=== PATIENT | male | born 1950 | race Caucasian/White ===

== ENCOUNTER 2023-12-07 19:33 | Inpatient (IN) | payer BC, MEDICARE, SELFPAY ==
[2023-12-07] VITALS (12 sets, daily range): BP systolic 98–139; BP diastolic 56–91; BMI 28.5; BMI 28.4
[2023-12-07 13:37] LABS: % Basophils 0.2 % (0-2); % Eosinophils 0.1 % (0-6); % Immature Granulocytes 0.8 % (0-0.5); % Monocytes 9.8 % (1.7-9.3); % Neutrophils 74.1 % (42.2-75.2); Absolute Immature Granulocytes 0.1 10^3/uL (0-0.05); Absolute Lymphocytes 1.4 10^3/uL (1.2-3.4); Absolute Monocytes 0.9 10^3/uL (0.1-0.6); Absolute Neutrophils 6.8 10^3/uL (1.4-6.5); Hematocrit 39.9 % (39.0-52.0); Hemoglobin 13.3 g/dL (13.0-18.0); Mean Corp Hgb Conc. 33.3 g/dL (33.0-37.0); Mean Corpuscular Hgb 29.6 pg (27.0-31.0); Mean Corpuscular Volume 88.9 fL (80.0-94.0); Nucleated Red Blood Cells % 0 % (-); Platelet Count 328 10^3/uL (130-400); Red Blood Cell Count 4.49 10^6/uL (4.70-6.10); Red Cell Dist. Width 13.4 % (11.5-14.5); White Blood Cell Count 9.2 10^3/uL (4.8-10.8)
[2023-12-07 13:54] LABS: ALT (SGPT) 23 U/L (0-50); AST (SGOT) 26 U/L (17-59); Albumin 4.1 g/dl (3.5-5.0); Alkaline Phosphatase 61 U/L (38-126); Blood Urea Nitrogen 28 mg/dl (9-20); Calcium 9.9 mg/dl (8.4-10.2); Carbon Dioxide 26 mmol/L (22-30); Chloride 103 mmol/L (98-107); Glucose 93 mg/dl (70-99); Magnesium 2.1 mg/dl (1.6-2.3); Potassium 5.1 mmol/L (3.5-5.1); Sodium 137 mmol/L (135-145); Total Bilirubin 0.5 mg/dl (0.2-1.3); Total Protein 6.3 g/dl (6.3-8.2); eGFR > 60.00
[2023-12-07 14:02] LABS: Troponin I < 0.012 ng/ml
[2023-12-07] MEDS: ASPIRIN 325 MG PO (14:02)
[2023-12-07 14:21] LABS: TSH 0.85 uIU/ml (0.47-4.68)
[2023-12-07] MEDS: SOLU-CORTEF 200 MG IV (15:19)
[2023-12-07] MEDS: BENADRYL 25 MG IV (15:19)
--- NOTE | 2023-12-07 17:38 | ED.GENMED ---
History of Present Illness
General
Chief Complaint: Chest Pain
Source: patient and spouse
Exam Limitations: none
Time Seen by Provider: 12/07/23 12:59
Nursing documentation reviewed up to this point in time: agreed with
Travel History
Have you had any contact with someone who has COVID-19?: No
Do you have any symptoms of coronavirus? Fever > 100 degrees, chills, cough, shortness of breath, sore throat, loss of taste or smell, muscle aches, or headache?: No
History of Present Illness
History of Present Illness:
73-year-old male past medical history of COPD, previous DVT remotely not currently on anticoagulation, hypertension presenting to the emergency department today with concerns of intermittent chest pain over the past 4 days made worse with exertion
some rotation down his left arm associated lightheadedness some nausea.
Past History
Past History
ED Past Medical History: COPD, Other (Autoimmune demyelinating disease) and Other (hx of blood clots); Negative HTN
Social History
Tobacco: Smoker
Alcohol: Occasional
Drug: None
Personal:
Living: with family
Employment: Disabled
Review of Systems
Review of Systems
Allergies reviewed?: Yes
All Other Systems: ROS reviewed and negative except as documented in HPI and ROS
Phy Exam
Physical Exam
Physical Exam:
GENERAL: Alert , in no apparent distress
EYE: pupils equal and reactive
NECK: Supple, no significant adenopathy.
ENT: o/p clr, mmm.
CARDIAC: Irregularly irregular
LUNGS: Clear breath sounds bilaterally, no acute respiratory distress, no wheezes/rales/rhonchi
ABDOMEN: Soft, without focal tenderness, no r/g, no cvat
NEUROLOGICAL: Alert and oriented, no focal neuro deficits
SKIN: Warm and dry, skin intact.
MUSCULOSKELETAL: No edema, well perfused.
PSYCH: Normal and appropriate interaction.
Scores
Heart Score for Chest Pain Patients
STEMI patient?: Not applicable
Course
Orders/Labs/Results
Orders:
Orders
12/07/23 12:48
Electrocardiogram (*1) Urgent
Reason for Study: Chest Pain
EKG- Treatment ONCE
12/07/23 13:11
CT Chest Pe Study Urgent
Comment:
Reason For Exam: CP. tachy, hx of DVT
Cardiac Monitoring- Treatment ONCE
Aspirin 325 mg PO NOW STA
12/07/23 13:29
Complete Blood Count/With Diff Urgent
Comprehensive Metabolic Panel Urgent
Magnesium Urgent
TSH Urgent
Troponin I Urgent
12/07/23 14:46
Hydrocortisone Sod Succinate [Solu-Cortef] 200 mg IV NOW STA
12/07/23 14:53
Diphenhydramine [Benadryl] 25 mg IV NOW STA
12/07/23 17:33
PT/INR [Prothrombin Time] Urgent
PTT Urgent
12/07/23 17:35
0.9% Sodium Chloride 250 ml [Nss] 250 ml IV BOLUS
Abnormal Lab Results
12/07/23
13:29
RBC 4.49 L 10^6/uL
(4.70-6.10)
Abs Immat Gran (auto) 0.1 H 10^3/uL
(0-0.05)
Absolute Neuts (auto) 6.8 H 10^3/uL
(1.4-6.5)
Absolute Monos (auto) 0.9 H 10^3/uL
(0.1-0.6)
Immature Gran % 0.8 H %
(0-0.5)
Lymphocytes % 15.0 L %
(20.5-51.1)
Monocytes % 9.8 H %
(1.7-9.3)
BUN 28 H mg/dl
(9-20)
12/07/23 13:29
12/07/23 13:29
Vital Signs
Initial and Last Documented VS:
Initial Vital Signs
Temp Pulse Resp BP Pulse Ox
98.4 F 64 16 133/80 98
12/07/23 12:53 12/07/23 12:53 12/07/23 12:53 12/07/23 12:53 12/07/23 12:53
Last Documented Vital Signs
Temp Pulse Resp BP Pulse Ox
98.4 F 101 17 122/75 96
12/07/23 12:53 12/07/23 13:45 12/07/23 13:45 12/07/23 13:25 12/07/23 13:45
MDM/Problems Addressed
MDM/Problems Addressed:
73-year-old male presenting to the emergency department today with concerns of chest pain lightheadedness over the past few days. Upon arrival here patient was found to have atrial fibrillation heart rate ranging between 90 and 110. Patient seems
to feel better at rest but has increased symptoms with exertion. No history of A-fib. Not currently anticoagulated. Does of a history of DVT concerning the CT PE was performed that did not show any pulmonary embolism or additional emergent
abnormalities labs otherwise unremarkable. Patient stayed in atrial fibrillation throughout ER stay. Patient started on heparin will be admitted for further assessment.
*Critical Care Note
Total Time (30-74mins, 75-104mins- exclusive of procedures): Not Applicable
ED Attending Note
-
Portions of this chart may have been created with voice recognition software.� Occasional wrong word or��sound alike� substitutions may have occurred due to the inherent limitations of voice recognition software.
Discharge Plan
Departure
Patient Disposition: Admit
Date of Disposition: 12/07/23
Time of Disposition: 17:45
Admit to: Telemetry
Admit to doctor: Giancarlo
Presentation/result/management discussed w/ accepting MD/DO: Hospitalist
Patient with high blood pressure during this ER visit?: No
Condition: Good
Covid-19: Not Applicable
Discharge Problem:
Atrial fibrillation
Prescriptions:
No Action
atorvastatin 10 MG tablet
10 mg PO QPM
mycophenolate mofetil 250 MG capsule
500 mg PO BID
omeprazole 40 MG capsule,delayed release(DR/EC)
40 mg PO DAILY
gabapentin 300 MG capsule
300 mg PO QID
fenofibrate 160 MG tablet
80 mg PO DAILY
albuterol sulfate 2.5 MG/3 ML solution for nebulization
2.5 mg inhalation QID Qty: 1 0RF
fluticasone propionate 1 SPRAY spray,suspension
2 spray intranasal DAILYPRN PRN (Reason: nasal congestion)
guaifenesin [Mucus Relief ER] 600 MG tablet extended release 12hr
600 mg PO Q12 0RF
amlodipine 5 mg Tablet
5 mg PO DAILY
tamsulosin 0.4 mg Capsule
0.4 mg PO DAILY
loratadine [Claritin] 10 mg Tablet
10 mg PO DAILY
Stiolto Respimat 2.5-2.5 mcg/actuation Mist
2 puff INHALATION DAILY
Referrals:
Ailyn Fabian CRNP [Family Provider] -
Interventions
Interventions:
*ED COVID-19 Vaccine History Last Done: 12/07/23 12:52
Discharge Date and Time
Print Language: TRISTANIAN
[2023-12-07] MEDS: NSS 250 IV (17:50)
[2023-12-07 18:19] LABS: INR 1.13; PT 14.4 Sec (11.4-14.6)
--- NOTE | 2023-12-07 19:06 | HPS.HSE ---
Family Physician
-
Family Physician: Ailyn Fabian
Chief Complaint
-
Chest pain and palpitations
History of Present Illness
This is a 73-year-old male who has past medical history that is significant for COPD not on home O2, CIDP, GERD and osteoarthritis who presents to the emergency department with complaint of palpitations chest pains and dizziness.
Patient reports onset of symptoms about 3 days ago. He reports feeling occasionally dizzy or lightheaded. He reports intermittent fleeting chest pain lasting minutes and then resolving spontaneously. Occasionally associated with exertion. He
denies any pleuritic chest pain. He denies any cough or wheezing or shortness of breath at rest. Patient denies fevers or chills. He reports feeling occasionally lightheaded with exertion. He denies any prior history of atrial fibrillation. He
does report a prior history of DVT about 25 years ago for which he was anticoagulated and completed the course of treatment. Patient reports occasional puffiness to his bilateral ankles which usually resolves with leg elevation. He denies
orthopnea or PND. He denies any recent weight gain.
On arrival to the emergency department the patient was afebrile blood pressure was 108/75 with a heart rate of 10 1-1 30 and oxygen saturation of 96% on room air. ECG shows atrial fibrillation with a rapid ventricular response at a rate of 110.
Patient had a CT PE study which was negative for PE or any acute infiltrates but did showed mild emphysema. Initial troponin was negative. TSH was within normal limits. CBC was unremarkable. Chemistries were also unremarkable.
Medical History
Past Medical History
Past Medical History: Reports COPD and GERD
Additional Past Medical History:
CIDP
Past Surgical History: Reports None
Social History
Tobacco: Former Smoker
Alcohol: None
Drug: None
Personal: Single
Living: Alone
Employment: Retired
Family History
Family History: Not pertinent
Allergies / Home Medications
Allergies reflects when Allergies were last updated in [facility].
Home Medications with original date entered in [facility]
Allergy/Medication List:
Allergies
Allergy/AdvReac Type Severity Reaction Status Date / Time
codeine Allergy Severe Anaphylaxis Verified 12/07/23 13:13
cephalexin monohydrate Allergy 'Throat Verified 12/07/23 12:53
[From Keflex] closes'
diphenhydramine HCl Allergy Loss of Verified 12/07/23 12:53
[From Benadryl] control of
extremities
iodine Allergy 'throat Verified 12/07/23 12:53
closes'
Penicillins Allergy Hives Verified 12/07/23 12:53
immune globulin Allergy Anaphylaxis Uncoded 12/07/23 12:53
monohydrate Allergy Unknown Uncoded 12/07/23 12:53
Home Medications
atorvastatin 10 mg tablet 10 mg PO DAILY 08/01/13
gabapentin 300 mg capsule 300 mg PO QID 08/01/13
omeprazole 40 mg capsule,delayed release 40 mg PO QPM 08/01/13
fenofibrate 160 mg tablet 80 mg PO DAILY 08/11/13
fluticasone propionate 50 mcg/actuation nasal spray,suspension 2 spray intranasal DAILYPRN PRN nasal congestion 05/17/16
albuterol sulfate 90 mcg/actuation aerosol inhaler (ProAir HFA) 2 inh inhalation R DAILY 12/07/23
amlodipine 5 mg tablet 5 mg PO DAILY 12/07/23
aspirin 81 mg tablet,delayed release 81 mg PO DAILY 12/07/23
cholecalciferol (vitamin D3) 25 mcg (1,000 unit) tablet (Vitamin D3) 25 mcg PO BID 12/07/23
ipratropium 0.5 mg-albuterol 3 mg (2.5 mg base)/3 mL nebulization soln 3 ml inhalation R QIDPRN PRN SOB 12/07/23
loratadine 10 mg tablet (Claritin) 10 mg PO DAILY 12/07/23
mycophenolate mofetil 500 mg tablet 500 mg PO BID 12/07/23
tamsulosin 0.4 mg capsule 0.4 mg PO DAILY 12/07/23
tiotropium 2.5 mcg-olodaterol 2.5 mcg/actuation mist for inhalation (Stiolto Respimat) 2 puff inhalation R DAILY 12/07/23
Review of Systems
-
History Source: Patient
Constitutional: Reports No Symptoms
EENT: Reports No Symptoms
Respiratory: Reports No Symptoms
Cardiac: Reports Palpitations
Abdomen/GI: Reports No Symptoms
: Reports No Symptoms
Musculoskeletal: Reports No Symptoms
Skin: Reports No Symptoms
Neurological: Reports No Symptoms
Endocrine: Reports No Symptoms
Hematologic/Lymphatic: Reports No Symptoms
Psych: Reports No Symptoms
Physical Exam
Vital Signs
Vital Signs
Temp Pulse Resp BP Pulse Ox
98.4 F 101 17 122/75 96
12/07/23 12:53 12/07/23 13:45 12/07/23 13:45 12/07/23 13:25 12/07/23 13:45
Physical Exam
General: Well Developed, Well Nourished, No Apparent Distress, Comfortable and Conversant
HEENT: NormoCephalic, Anicteric, Moist mucous membranes and Atraumatic
Respiratory: Clear
Cardiac: S1/S2 and Irregular Rhythm
Breast: Deferred by me
GI: Soft, Non Tender and Distended
Rectal: Deferred by Provider
Genito-urinary: Deferred by me
Musculoskeletal: No Clubbing, No Cyanosis and No Edema
Neuro: AO x 3
Hematologic/Lymphatic: No Lymphadenopathy
Psych: Calm
Laboratory Results
-
12/07/23 13:29
12/07/23 13:29
Laboratory Results
PT 14.4 Sec (11.4-14.6) 12/07/23 17:49
INR 1.13 12/07/23 17:49
APTT 25.0 Sec (23.4-35.0) 12/07/23 17:49
Total Bilirubin 0.5 mg/dl (0.2-1.3) 12/07/23 13:29
AST 26 U/L (17-59) 12/07/23 13:29
ALT 23 U/L (0-50) 12/07/23 13:29
Alkaline Phosphatase 61 U/L (38-126) 12/07/23 13:29
Troponin I < 0.012 ng/ml 12/07/23 13:29
Data Reviewed
-
CT Scan: Report Reviewed by me
Medical Tests (Nuc Med, Echo, EKG etc): Image Personally Visualized and interpreted
Lab Data: Labs Reviewed by me
Old Records: Reviewed
Impression/Plan
-
IMPRESSION:
PLAN:
1. AFIB RVR - New Onset atrial fibrillation with rapid ventricular response. Hemodynamically table. Palpitations. No signs of acute CHF.
- admit to telemetry/IVU
- rate uncontrolled, no CHF, will start on diltiazem gtt
- [id number] = 2. AC started with heparin tonight, will convert to eliquis in am
2. COPD - No signs of acute exacerbation
- continue home Stiolto Respimat with prn nebs
3. Chest pain - possible rate related. Currently no chest pain, negative troponin and no ischemia on ECG.
- rate control as above
- aspirin 81 daily
- ac for afib
- no PE on CT scan.
4. BPH
- continue tamsulosin
DVT PPX - on AC
Full Code
[2023-12-07] MEDS: CARDIZEM 15 MG IV (19:44)
[2023-12-07] MEDS: VITAMIN D3 (cholecalciferol) 25 MCG PO (19:45)
[2023-12-07] MEDS: CELLCEPT 500 MG PO (19:45)
[2023-12-07] MEDS: HEPARIN 25000 UNITS/250 ML IV (19:46)
[2023-12-07] MEDS: CARDIZEM 125 IV (21:43)
[2023-12-07] MEDS: NEURONTIN 300 MG PO (21:44)
[2023-12-08] VITALS (8 sets, daily range): BP systolic 116–135; BP diastolic 70–88
--- NOTE | 2023-12-08 01:05 | PTCARENOTE ---
Late note:Received from the ED at 2114. Heparin infusing at 1000units/hr. Cardizem infusing at 5mg/hr. Remains in A-fib in the 80's. Sleeping at present.
[2023-12-08 02:23] LABS: Blood Urea Nitrogen 30 mg/dl (9-20); Calcium 9.7 mg/dl (8.4-10.2); Carbon Dioxide 26 mmol/L (22-30); Chloride 102 mmol/L (98-107); Estimated Creatinine Clearance 50 ml/min; Glucose 135 mg/dl (70-99); Magnesium 2.3 mg/dl (1.6-2.3); Potassium 4.9 mmol/L (3.5-5.1); Sodium 137 mmol/L (135-145); eGFR 58.37
[2023-12-08 02:25] LABS: APTT 34.2 Sec (23.4-35.0)
--- NOTE | 2023-12-08 07:05 | PTCARENOTE ---
Patient rang this morning stating that he had chest pressure and some SOB that he had for about an hour, EKG done showing a-fib, 2 L 02 applied, as I was talking to him his pressure was easing. Asked him to notify staff if pressure/pain returns.
[2023-12-08] MEDS: SPIRIVA RESPIMAT 2.5 MCG 2 PUFF INH (08:07)
[2023-12-08] MEDS: STRIVERDI RESPIMAT 2 PUFF INH (08:07)
--- NOTE | 2023-12-08 08:18 | W.PN.HOSP.TC ---
Today's Communication/Plan
-
see bold
Assessment / Plan
Assessment / Plan
Gen: NAD, AAOx3.
Eyes: EOMI, PERRLA, no scleral icterus.
Neck: supple.
CV: RRR, +S1/S2, no m/r/g.
Resp: CTAB, no rales, wheezes, or rhonchi.
Abd: +BS, soft, NT, ND
Skin: No rashes.
Neuro: CN 2-12 intact, non-focal.
Psych: Normal mood and affect.
Afib with RVR:
-cont cardizem gtt. Currently rate controlled. Will likely transition to PO rate control today.
-convert to Eliquis (stop heparin gtt)
-CP likely rate related. Trop NEG, ECG without acute ischemic changes.
Other problems:
COPD: not in acute exac. Cont Spiriva/Striverdi.
BPH: cont Flomax
CIDP: cont Cellcept/neurontin
GERD: cont PPI
OA
FULL/Eliquis
Anticipated Discharge: Within 24 hours
Subjective/Interval History
-
Date of Service: December 08, 2023
Objective Data
-
Labs:
Laboratory Results
12/08/23 12/08/23
01:48 08:30
APTT 34.2 Pending
Sodium 137
Potassium 4.9
Chloride 102
Carbon Dioxide 26
BUN 30 H
Creatinine 1.3
Glucose 135 H
Calcium 9.7
Vital Signs:
Vital Signs
Temp Pulse Resp BP Pulse Ox
97.7 F 85 16 130/82 98
12/08/23 07:50 12/08/23 08:16 12/08/23 08:16 12/08/23 07:52 12/08/23 07:52
I&O
12/07/23 12/08/23 12/09/23
06:59 06:59 06:59
Output Total 550 / 550
Balance -550 / -550
[2023-12-08] MEDS: ASPIR LOW (ENTERIC COATED) 81 MG PO (08:42)
[2023-12-08] MEDS: FLOMAX 0.400000000000000022 MG PO (08:44)
[2023-12-08] MEDS: ELIQUIS 5 MG PO ×2 (08:45→20:56)
[2023-12-08] MEDS: TRICOR 48 MG PO (08:45)
[2023-12-08] MEDS: LIPITOR 10 MG PO (08:45)
[2023-12-08] MEDS: NEURONTIN 300 MG PO ×4 (08:45→22:26)
[2023-12-08] MEDS: VITAMIN D3 (cholecalciferol) 25 MCG PO ×2 (08:45→20:56)
[2023-12-08] MEDS: CELLCEPT 500 MG PO ×2 (08:47→20:56)
--- NOTE | 2023-12-08 11:02 | PTCARENOTE ---
Received patient this morning resting in bed, IV heparin infusing and IV cardizem. Patient remains in AF at a controlled rate. IV heparin discontinued as ordered and patient given dose of PO eliquis. Offers no complaints at this time, assisted to
the bathroom, resting in bed now with call landry in reach.
[2023-12-08] MEDS: CLARITIN 10 MG PO (13:06)
[2023-12-08] MEDS: PROTONIX 40 MG PO (16:53)
[2023-12-08] MEDS: CARDIZEM 125 IV (18:53)
[2023-12-09] VITALS (20 sets, daily range): BP systolic 99–157; BP diastolic 63–98
--- NOTE | 2023-12-09 03:58 | PTCARENOTE ---
New peripheral line placed after LAC site leaked. Cardizem gtt currently at 5 mg/hr. Pt remains in aflutter with BBB. 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
[2023-12-09] MEDS: STRIVERDI RESPIMAT 2 PUFF INH (07:45)
[2023-12-09] MEDS: SPIRIVA RESPIMAT 2.5 MCG 2 PUFF INH (07:45)
[2023-12-09] MEDS: ASPIR LOW (ENTERIC COATED) 81 MG PO (08:47)
[2023-12-09] MEDS: NEURONTIN 300 MG PO ×4 (08:47→22:21)
[2023-12-09] MEDS: ELIQUIS 5 MG PO (08:47)
[2023-12-09] MEDS: CELLCEPT 500 MG PO ×2 (08:48→20:10)
--- NOTE | 2023-12-09 08:49 | PTCARENOTE ---
Patient sitting oob in the chair at change of shift with cardizem infusing at 5mg/hr, anxious to have echo done and hoping to go home. At 0820 patient called nurse with complaints of left anterior/lateral chest pressure. Rated 8/10 stating it felt
like someone was sitting on his chest. Assisted back to bed, EKG done, patient diaphoretic, flushed and grimacing with chest pain. Dr. Stratton notified, SLIP [facility] called. Given NTG sl for chest pain rated 8/10, 157/86-96% on 3L NC. See [facility] report for further
info. Cardiology consult placed, labs drawn and PCXR done. Patient rates his pain after NTG 07/10, monitoring VS, call landry in reach.
--- NOTE | 2023-12-09 08:53 | RR ---
A Rapid Response was called on this patient, please see Rapid Response form.
[2023-12-09] MEDS: TOPROL XL 25 MG PO (08:58)
--- NOTE | 2023-12-09 09:27 | W.PN.HOSP.TC ---
Today's Communication/Plan
-
see bold
Assessment / Plan
Assessment / Plan
Gen: NAD, AAOx3.
Eyes: EOMI, PERRLA, no scleral icterus.
Neck: supple.
CV: RRR, +S1/S2, no m/r/g.
Resp: CTAB, no rales, wheezes, or rhonchi.
Abd: +BS, soft, NT, ND
Skin: No rashes.
Neuro: CN 2-12 intact, non-focal.
Psych: Normal mood and affect.
Afib with RVR:
-has been on cardizem gtt (currently at 5mg/hr)
-start Toprol XL 25mg daily
-cont Eliquis
-with recurrent chest pain we will trend troponins and check an echo. Chest pain did improve with nitroglycerin.
-Current ECGs without acute ischemic changes
-Cardiology consulted. Case discussed with cardiology.
Other problems:
COPD: not in acute exac. Cont Spiriva/Striverdi.
BPH: cont Flomax
CIDP: cont Cellcept/neurontin
GERD: cont PPI
OA
FULL/Eliquis
Total time spent on today's encounter was 50 minutes which included time spent in counseling the patient/family regarding diagnosis and treatment plan as listed above, goals of care, and symptom management. Case was discussed with nursing staff,
specialists, and care coordinators/case management. All labs and imaging personally reviewed by me. Remainder the time spent in detailed review of previous records, lab data, imaging, and other medical provider documentation.
Anticipated Discharge: 24 - 48 hours
Subjective/Interval History
-
Date of Service: December 09, 2023
Patient had a rapid response for pressure-like chest pain. Chest pain is improved with nitroglycerin.
Objective Data
-
Labs:
Laboratory Results
12/09/23
06:00
WBC Cancelled
Hgb Cancelled
Hct Cancelled
Plt Count Cancelled
Vital Signs:
Vital Signs
Temp Pulse Resp BP Pulse Ox
97.3 F 86 14 120/78 97
12/09/23 06:51 12/09/23 08:58 12/09/23 07:50 12/09/23 08:58 12/09/23 06:51
I&O
12/08/23 12/09/23 12/10/23
06:59 06:59 06:59
Intake Total 1560 / 1560
Output Total 550 / 550
Balance -550 / -550 1560 / 1560
--- NOTE | 2023-12-09 09:36 | CON.CAR ---
Addendum entered and electronically signed by Milagros Méndez DO 12/09/23 16:36:
I saw and examined the patient.
The Charter Boat Operator's note was reviewed and I agree with the note.
Comment: Patient seen and examined with cardiac PA. Isaiah presented to [facility] Saturday with chest pain and cardiology is now consulted for new Afib and after a rapid response for recurrent chest pain this morning. Patient says that starting 2-3 weeks
ago he noticed LLOYD worse than usual, he attributed this to his known COPD that tends to get worse at times depending on allergies and humidity. He also noticed increased nocturia starting around that time. Then at the end of last week he was having
episodes of chest pain that started with activity and would eventually improve with rest. Chest pain was sharp and left sided and radiated down the left arm. No resting chest pain. In [facility] he was found to be in Afib with RVR which was a new
diagnosis for him. He has a h/o DVT so a CT chest was checked and it was negative for PE. Patient was started on Cardizem gtt for rate control and Heparin gtt as well. He was transitioned to Eliquis 5 mg BID starting Saturday morning. He then had an
episode of resting chest pain this morning that he describes as being similar to his admission symptoms. Patient was still on Cardizem gtt at 5 mg/hr during chest pain episode and Afib was rate controlled in the 70s. ECG at that time was negative
for ischemic changes and his chest pain was relieved with NTG SL x1 and has not recurred.
GEN: NAD. AAOx3
HEENT: mmm
LUNGS: Wearing oxygen at 2 L NC. CTA B/L without wheeze
CV: Reg, S1/S2, no murmur
ABD: soft, BS+, NT, ND
EXT: No edema
Plan:
-Recurrent chest pain with escalating chest pain over the last week concerning for unstable angina
-Multiple risk factors for coronary artery disease with 2D echocardiogram noting mild LV dysfunction, EF 45-50%
-Discussed further ischemic evaluation and he is agreeable to proceed with a left heart catheterization which we will plan for 12/11/2023 following washout of Eliquis
-Hold Eliquis and start IV heparin without bolus. Continue aspirin 81 mg daily
-Will need IV dye allergy prep prior to catheterization
-Check lipid profile; continue atorvastatin
-New diagnosis of rapid atrial fibrillation
-He remains in atrial fibrillation now with rates controlled
-Will discontinue IV Cardizem drip and continue metoprolol succinate
-Hold newly started Eliquis for cardiac catheterization and start IV heparin. Following cardiac procedures will resume Eliquis 5 mg twice daily
-Cont outpatient dose of aspirin 81 mg daily for now.
-TSH normal at 0.85
-Pending cardiac catheterization findings can discuss rhythm control strategy options
COPD with prior tobacco dependence
-No active issues
-Follows with pulmonary, Dr. Lomeli as an outpatient
-Will review outpatient pulmonary records for prior sleep apnea evaluation
Hyperglycemia with elevated hemoglobin A1c 6.1% consistent with prediabetic state
-Await cardiac catheterization findings
-Low-carb/low sugar cardiac healthy diet with aim towards normoglycemia
Hyperkalemia
-Repeat basic metabolic profile
-Potassium level was normal on admission and does not take KCl/ROD/ARB/spironolactone
History of prior DVT 2009 not on longstanding anticoagulation at time of admission
-CTA chest without pulmonary embolism or aortic dissection. Mild emphysematous changes.
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
Original Note:
Consultation
Consultation Request
Date/Time Consultation Requested: 12/09/23
Date/Time Consultation Performed: 12/09/23
Requesting Provider: Dr. Stratton
Performing Provider: Dr. Méndez
Reason for Consultation: Chest pain, newly diagnosed Afib of unclear duration
Medical History
-
History of Present Illness:
Patient came to [facility] Saturday with chest pain and cardiology is now consulted for new Afib and after a rapid response for recurrent chest pain this morning. Patient says that starting 2-3 weeks ago he noticed LLOYD worse than usual, he attributed this
to his known COPD that tends to get worse at times depending on allergies and humidity. He also noticed increased nocturia starting around that time. Then at the end of last week he was having episodes of chest pain that started with activity and
would eventually improve with rest. Chest pain was sharp and left sided and radiated down the left arm. No resting chest pain. In [facility] he was found to be in Afib with RVR which was a new diagnosis for him. He has a h/o DVT so a CT chest was checked
and it was negative for PE. Patient was started on Cardizem gtt for rate control and Heparin gtt as well. He was transitioned to Eliquis 5 mg BID starting Saturday morning. He then had an episode of resting chest pain this morning that he describes as
being similar to his admission symptoms. Patient was still on Cardizem gtt at 5 mg/hr during chest pain episode and Afib was rate controlled in the 70s. ECG at that time was negative for ischemic changes and his chest pain was relieved with NTG SL
x1 and has not recurred.
PMH:
COPD
CIDP on chronic CellCept therapy
h/o anaphylaxis with IVIG therapy 2003
CKD 3
HTN
Hyperlipidemia
h/o DVT treated with warfarin approx 2008
Anaphylactic dye allergy
h/o nonobstructive CAD by cath at [facility] approx 2014
Past Medical History
Past Medical History: Other (in HPI)
Past Surgical History: Cardiac (cath at [facility] approx 2014 was normal per patient)
Social History
Tobacco: Former Smoker
Alcohol: None
Drug: None
Personal:
Living: With Family
Family History
Family History: Other (FH unknown to patient except that his brother is healthy)
Allergies / Home Medications
Allergy/AdvReac Type Severity Reaction Status Date / Time
codeine Allergy Severe Anaphylaxis Verified 12/07/23 13:13
cephalexin monohydrate Allergy 'Throat Verified 12/07/23 12:53
[From Keflex] closes'
diphenhydramine HCl Allergy Loss of Verified 12/07/23 12:53
[From Benadryl] control of
extremities
iodine Allergy 'throat Verified 12/07/23 12:53
closes'
Penicillins Allergy Hives Verified 12/07/23 12:53
immune globulin Allergy Anaphylaxis Uncoded 12/07/23 12:53
monohydrate Allergy Unknown Uncoded 12/07/23 12:53
�Medication �Instructions �Recorded �Confirmed �Type
atorvastatin 10 mg tablet 10 mg PO DAILY High Cholesterol 08/01/13 12/07/23 History
gabapentin 300 mg capsule 300 mg PO QID 08/01/13 12/07/23 History
omeprazole 40 mg capsule,delayed 40 mg PO QPM Gastrointestinal Issue 08/01/13 12/07/23 History
release
fenofibrate 160 mg tablet 80 mg PO DAILY High Cholesterol 08/11/13 12/07/23 History
fluticasone propionate 50 2 spray intranasal DAILYPRN PRN 05/17/16 12/07/23 History
mcg/actuation nasal nasal congestion
spray,suspension
albuterol sulfate 90 mcg/actuation 2 inh inhalation R DAILY 12/07/23 12/07/23 History
aerosol inhaler (ProAir HFA) Lung/Breathing Issues
amlodipine 5 mg tablet 5 mg PO DAILY Blood Pressure 12/07/23 12/07/23 History
aspirin 81 mg tablet,delayed 81 mg PO DAILY Blood Clot 12/07/23 12/07/23 History
release Prevention/Tx
cholecalciferol (vitamin D3) 25 25 mcg PO BID Supplement 12/07/23 12/07/23 History
mcg (1,000 unit) tablet (Vitamin
D3)
ipratropium 0.5 mg-albuterol 3 mg 3 ml inhalation R QIDPRN PRN SOB 12/07/23 12/07/23 History
(2.5 mg base)/3 mL nebulization
soln
loratadine 10 mg tablet (Claritin) 10 mg PO DAILY Allergies 12/07/23 12/07/23 History
mycophenolate mofetil 500 mg tablet 500 mg PO BID 12/07/23 12/07/23 History
tamsulosin 0.4 mg capsule 0.4 mg PO DAILY Urinary Issue 12/07/23 12/07/23 History
tiotropium 2.5 mcg-olodaterol 2.5 2 puff inhalation R DAILY 12/07/23 12/07/23 History
mcg/actuation mist for inhalation Lung/Breathing Issues
(Stiolto Respimat)
Review of Systems
-
History Source: Patient
All other systems: Negative unless noted
Physical Exam
Vital Signs
Temp Pulse Resp BP Pulse Ox
97.3 F 86 14 120/78 97
12/09/23 06:51 12/09/23 08:58 12/09/23 07:50 12/09/23 08:58 12/09/23 06:51
GEN: NAD. AAOx3
HEENT: EOMI, MMM
LUNGS: Wearing oxygen at 2 L NC. CTA B/L without wheeze
CV: Reg, S1/S2, no murmur
ABD: soft, BS+, NT, ND
EXT: No clubbing, cyanosis, lesions or edema B/L
NEURO: Gross non-focal
SKIN: Warm, dry and pink. No rash
Lab Results
12/09/23 06:00
12/08/23 01:48
Troponin I < 0.012 ng/ml 12/07/23 13:29
Impression / Plan
-
PCP: Ailyn Fabian EXECUTIVE COMMUNICATIONS MANAGER
Cardiology: Dr. Teran, last seen 04/17/22
Impression:
Chest pain
Newly diagnosed Afib with RVR on admission 12/07/23
COPD
CIDP on chronic CellCept therapy
h/o anaphylaxis with IVIG therapy 2003
CKD 3
HTN
Hyperlipidemia
h/o DVT treated with warfarin approx 2008
Anaphylactic dye allergy
Hyperglycemia
h/o nonobstructive CAD by cath at [facility] approx 2014
Hyperkalemia
Echo 12/09/23: Study pending
Plan:
-Patient came to [facility] Saturday with chest pain and cardiology is now consulted for new Afib and after a rapid response for recurrent chest pain this morning. Patient says that starting 2-3 weeks ago he noticed LLOYD worse than usual, he attributed
this to his known COPD that tends to get worse at times depending on allergies and humidity. He also noticed increased nocturia starting around that time. Then at the end of last week he was having episodes of chest pain that started with activity
and would eventually improve with rest. Chest pain was sharp and left sided and radiated down the left arm. No resting chest pain. In [facility] he was found to be in Afib with RVR which was a new diagnosis for him. He has a h/o DVT so a CT chest was
checked and it was negative for PE. Patient was started on Cardizem gtt for rate control and Heparin gtt as well. He was transitioned to Eliquis 5 mg BID starting Saturday morning. He then had an episode of resting chest pain this morning that he
describes as being similar to his admission symptoms. Patient was still on Cardizem gtt at 5 mg/hr during chest pain episode and Afib was rate controlled in the 70s. ECG at that time was negative for ischemic changes and his chest pain was relieved
with NTG SL x1 and has not recurred.
-Patient with rapid response this AM for chest pain that was relieved with NTG SL x1 and has not recurred. Initial Troponin in the ER Saturday was undetectable and Troponin this morning is also undetectable. Will check another Troponin this
afternoon.
-ECG from day of admission and this AM reviewed by me and show Afib without acute ischemic changes.
-Check echo
-Patient with risk factors for CAD including age, CKD, former smoker, HTN and hyperlipidemia. Talked with patient about possible cardiac cath and he mentions he had a cath at [facility] about 10 years ago that was reportedly normal. Patient would be open
to cath this admission pending echo and Troponins.
-Check CVE. Patient takes atorvastatin 10 mg daily as an outpatient.
-Cont outpatient dose of aspirin 81 mg daily for now.
-Afib is a new diagnosis. HRs controlled with Cardizem gtt since admission and currently running at 5 mg/hr. Will transition from Cardizem gtt to Cardizem CD pending echo. Patient with h/o moderate COPD/emphysema.
-Heparin gtt was transitioned to Eliquis 5 mg BID (age 73, Cre 1.3 and wt 94.6 kg) on 12/08/23 AM. Will hold Eliquis starting 12/09/23 PM and transition back to Heparin gtt for possible cath. Eventually transition back to Eliquis.
-Talked with patient about possible eventual rhythm control strategy which includes MART/CV this admission vs outpatient CV after 4 weeks of OAC.
-TSH normal at 0.85
-Hyperglycemia since admission. Check HgbA1c
-Recheck BMP in AM. Potassium level was normal on admission and does not take KCl/ROD/ARB/spironolactone
[2023-12-09 09:51] LABS: % Basophils 0.3 % (0-2); % Eosinophils 0.1 % (0-6); % Immature Granulocytes 0.9 % (0-0.5); % Lymphocytes 12.2 % (20.5-51.1); % Neutrophils 81.5 % (42.2-75.2); Absolute Immature Granulocytes 0.1 10^3/uL (0-0.05); Absolute Lymphocytes 1.3 10^3/uL (1.2-3.4); Absolute Monocytes 0.5 10^3/uL (0.1-0.6); Absolute Neutrophils 8.4 10^3/uL (1.4-6.5); Hematocrit 43.6 % (39.0-52.0); Hemoglobin 13.9 g/dL (13.0-18.0); Mean Corp Hgb Conc. 31.9 g/dL (33.0-37.0); Mean Corpuscular Hgb 29.1 pg (27.0-31.0); Mean Corpuscular Volume 91.4 fL (80.0-94.0); Mean Platelet Volume 10.7 fL (7.4-10.4); Nucleated Red Blood Cells % 0 % (-); Platelet Count 303 10^3/uL (130-400); Red Blood Cell Count 4.77 10^6/uL (4.70-6.10); Red Cell Dist. Width 13.4 % (11.5-14.5); White Blood Cell Count 10.3 10^3/uL (4.8-10.8)
[2023-12-09 09:54] LABS: APTT 26.5 Sec (23.4-35.0); INR 1.23; PT 15.3 Sec (11.4-14.6)
[2023-12-09 10:07] LABS: Alkaline Phosphatase 59 U/L (38-126); Blood Urea Nitrogen 39 mg/dl (9-20); Calcium 9.4 mg/dl (8.4-10.2); Carbon Dioxide 25 mmol/L (22-30); Chloride 101 mmol/L (98-107); Estimated Creatinine Clearance 50 ml/min; Glucose 126 mg/dl (70-99); Potassium 5.7 mmol/L (3.5-5.1); Sodium 136 mmol/L (135-145); Total Protein 6.3 g/dl (6.3-8.2); eGFR 58.37
[2023-12-09 10:08] LABS: ALT (SGPT) 20 U/L (0-50); AST (SGOT) 26 U/L (17-59); Total Bilirubin 0.8 mg/dl (0.2-1.3)
[2023-12-09] MEDS: FLOMAX 0.400000000000000022 MG PO (10:25)
[2023-12-09] MEDS: LIPITOR 10 MG PO (10:25)
[2023-12-09] MEDS: VITAMIN D3 (cholecalciferol) 25 MCG PO ×2 (10:26→20:10)
[2023-12-09] MEDS: CLARITIN 10 MG PO (10:31)
[2023-12-09] MEDS: TRICOR 48 MG PO (10:31)
[2023-12-09 12:04] LABS: Glycohemoglobin (HgbA1c) 6.1 % (4.0-5.6)
--- NOTE | 2023-12-09 13:12 | PTCARENOTE ---
Patient sitting oob in the chair, remains in AF at a controlled rate, cardizem gtt off. No chest pain, call landry in reach and is aware to call if any reoccurrence of chest pain.
--- NOTE | 2023-12-09 13:39 | CM ---
CM following for DC planning needs.
CM met w/ patient at bedside to complete initial assessment. Spouse was on speaker telephone.
Pt. resides w/ spouse in a private, 2 story home w/ spouse. Pt. is functionally indep. at baseline w/ ADLs, mobility with use of SPC.
Pt. has Rx plan and uses [facility] in [place] for prescription needs.
Anticipated DC plan is for home without needs.
CM will cont. to follow.
--- NOTE | 2023-12-09 14:42 | W.PN.UPDATE ---
Update Note
Progress Note Update
Back in to see patient. No chest pain. Echo with EF 45%, global hypokinesis, normal aortic valve, trivial MR. Troponin undetectable. Patient called his while I was in the room and we reviewed all of these results and explained the decreased EF.
Reviewed Afib with RVR for unknown duration prior to admission and now CP x2 episodes. Made a plan to stop Eliquis starting tonight and to restart Heparin gtt. Patient agreeable to cath 12/11/23 and will need to be premedicated due to dye allergy. He
was premedicated with Benadryl and hydrocortisone prior to CT for PE in the ER on Saturday and did well with that. Also talked again about eventual role of rhythm control strategy in the form of inpatient vs outpatient CV. Next Troponin due now.
--- NOTE | 2023-12-09 15:04 | CM ---
Priced Eliquis thru patient's insurance, ; estimated cost of Eliquis is 389.70/mo. Pt. has a deductible of 4,900 to meet (not including medical). Once met, cost of Eliquis is estimated to be $97/mo.
Pt. would be eligible for free 30 d supply; also would be eligible for $10/mo co-pay card. Will place in patient's chart and notify pt. directly.
[2023-12-09] MEDS: HEPARIN 25000 UNITS/250 ML IV (16:47)
[2023-12-09 16:50] LABS: Troponin I < 0.012 ng/ml
[2023-12-09] MEDS: PROTONIX 40 MG PO (16:58)
[2023-12-09] MEDS: NITROSTAT (SUBLINGUAL) 0.400000000000000022 MG SL (20:13)
--- NOTE | 2023-12-09 20:38 | PTCARENOTE ---
Pt rec'd at change of shift in bed. When asked pt stated he has 3 out of 10 chest discomfort (wt on left side ,non radiating). Pt given sl ntg with relief of symptoms from 3 to 1 out of 10. B/p dropped from 135/78 to 99/63 after 1. Pt instructed to
not hesitate and call should cp reoccur. heparin infusing at 1000 unit/hr. afib rate controlled on telemetry. call landry within reach.
[2023-12-09 22:56] LABS: APTT 39.8 Sec (23.4-35.0)
[2023-12-09 23:09] LABS: Troponin I < 0.012 ng/ml
[2023-12-10] VITALS (17 sets, daily range): BP systolic 89–147; BP diastolic 61–87
--- NOTE | 2023-12-10 00:08 | PTCARENOTE ---
At HS pt awoken for VS and labs. Pt denied chest discomfort at that time.
[2023-12-10] MEDS: NITROSTAT (SUBLINGUAL) 0.400000000000000022 MG SL ×2 (06:25→20:22)
--- NOTE | 2023-12-10 06:43 | PTCARENOTE ---
Pt again with cp this morning ' strong 3 out of 10' looks in some distress b/p 147/87 before SL NTG down to 89/61 after 5 min. o2 at 2 lit n/c placed. pain waxing and waning left chest. afib on telemetry. [place] text sent to Dr Ellison awaiting reply.
--- NOTE | 2023-12-10 07:52 | W.PN.HOSP.TC ---
Addendum entered and electronically signed by Felix Stratton MD 12/10/23 08:19:
correction, cath tomorrow as per cardiology.
Original Note:
Today's Communication/Plan
-
see bold
Assessment / Plan
Assessment / Plan
Gen: NAD, AAOx3.
Eyes: EOMI, PERRLA, no scleral icterus.
Neck: supple.
CV: irreg/irreg, +S1/S2, no m/r/g.
Resp: CTAB, no rales, wheezes, or rhonchi.
Abd: +BS, soft, NT, ND
Skin: No rashes. No LE edema
Neuro: CN 2-12 intact, non-focal.
Psych: Normal mood and affect.
Echo: EF 45-50%. Normal left ventricular wall thickness. Normal RV size and systolic function. Mildly dilated left atrium with normal left atrial volume index. Trivial mitral regurgitation.
Trileaflet structurally and functionally normal aortic valve
Mild tricuspid regurgitation
Estimated pulmonary artery pressure of 25-30 mmHg. Assuming a right atrial
pressure of 3 mmHg.
Normal pericardium without effusion. No pleural effusion present.
Afib with RVR:
-has been on cardizem gtt (currently at 5mg/hr)
-cont Toprol XL 25mg daily
-currently on heparin gtt
-with recurrent chest pain (which improved with nitroglycerin) trops checked and were NEG. Echo above, no RWMA.
-ECG 12/09/23 without acute ischemic changes
-Cardiology following, discussed with cardiology
-for cath today
Other problems:
COPD: not in acute exac. Cont Spiriva/Striverdi.
BPH: cont Flomax
CIDP: cont Cellcept/neurontin
GERD: cont PPI
OA
FULL/heparin gtt
Total time spent on today's encounter was 51 minutes which included time spent in counseling the patient/family regarding diagnosis and treatment plan as listed above, goals of care, and symptom management. Case was discussed with nursing staff,
specialists, and care coordinators/case management. All labs and imaging personally reviewed by me. Remainder the time spent in detailed review of previous records, lab data, imaging, and other medical provider documentation.
Anticipated Discharge: 24 - 48 hours
Subjective/Interval History
-
Date of Service: December 10, 2023
Reports 07/10 pressure-like L-sided CP. Denies SOB.
Objective Data
-
Labs:
Laboratory Results
12/09/23 12/10/23
22:37 07:49
APTT 39.8 H Pending
Vital Signs:
Vital Signs
Temp Pulse Resp BP Pulse Ox
98.3 F 91 18 129/79 99
12/10/23 07:24 12/10/23 07:24 12/10/23 07:24 12/10/23 07:24 12/10/23 07:24
I&O
12/09/23 12/10/23 12/11/23
06:59 06:59 06:59
Intake Total 1560 / 1560 720 / 720
Output Total 600 / 600
Balance 1560 / 1560 120 / 120
[2023-12-10] MEDS: NEURONTIN 300 MG PO ×4 (07:53→22:22)
[2023-12-10] MEDS: VITAMIN D3 (cholecalciferol) 25 MCG PO ×2 (07:53→19:52)
[2023-12-10] MEDS: LIPITOR 10 MG PO (07:53)
[2023-12-10] MEDS: TOPROL XL 25 MG PO (07:53)
[2023-12-10] MEDS: TRICOR 48 MG PO (07:53)
[2023-12-10] MEDS: FLOMAX 0.400000000000000022 MG PO (07:53)
[2023-12-10] MEDS: ASPIR LOW (ENTERIC COATED) 81 MG PO (07:53)
[2023-12-10] MEDS: CELLCEPT 500 MG PO ×2 (07:54→19:52)
[2023-12-10] MEDS: CLARITIN 10 MG PO (07:56)
[2023-12-10] MEDS: STRIVERDI RESPIMAT 2 PUFF INH (08:11)
[2023-12-10] MEDS: SPIRIVA RESPIMAT 2.5 MCG 2 PUFF INH (08:11)
[2023-12-10 08:19] LABS: Troponin I < 0.012 ng/ml
[2023-12-10] MEDS: IMDUR (EXTENDED RELEASE) 30 MG PO (08:49)
--- NOTE | 2023-12-10 09:09 | PTCARENOTE ---
Assumed care of pt at 0645. AAOx3. Afib on desk monitor. HRs 70s-90s. Remains on 2L nc, SaO2 99%. VSS. Pt denies CP at this time. Heparin gtt increased to 1400 units/hr for PTT result 61.0, next PTT due at 1430. Imdur 30mg PO daily started. Plan
for cath tmrw. Assessment documented. Pt in bed, call landry in reach.
--- NOTE | 2023-12-10 11:14 | CM ---
CM following for DC planning needs.
Met w/ patient at bedside; spouse over speaker telephone.
Reviewed anticipated cost of Eliquis, patient's annual deductible and coupons. Pt. aware/ agreeable to cost.
Placed coupons in chart.
Anticipated DC plan is for home, no needs; patient and spouse agree.
CM to cont. to follow.
[2023-12-10] MEDS: HEPARIN 25000 UNITS/250 ML IV (12:20)
--- NOTE | 2023-12-10 12:36 | W.PN.CARDCBS ---
Addendum entered and electronically signed by Tree Jerry MD 12/10/23 13:22:
I saw and examined the patient.
The RELAY OPERATOR or PA's note was reviewed and I agree with the note.
Comment: General: Well developed, well nourished in NAD.
Neck: Supple, no JVD, HJR, carotids +2 B/L, no bruits bilaterally.
Heart: Non displaced PMI, RRR, no murmurs, No S3, S4, no rubs.
Lungs: Clear to auscultation bilaterally, no wheeze, rhonchi, rubs bilaterally,
normal expiratory phase.
Extremities: No clubbing, cyanosis or edema bilaterally.
Neuro: Grossly nonfocal, awake, alert and oriented x3.
He remains in sinus rhythm. He continues with chest pain but troponins have been negative. Will do cardiac catheterization on 12/10 to exclude CAD. Continue IV heparin for now and start Eliquis after catheterization. Discussed with patient in
detail.
Original Note:
Today's Communication / Plan
-
Cath in AM
Labs ordered
Impression / Plan
-
PCP: Ailyn Fabian RELAY OPERATOR
Cardiology: Dr. Teran, last seen 04/17/22
Impression:
Chest pain
Newly diagnosed Afib with RVR on admission 12/07/23
COPD
CIDP on chronic CellCept therapy
h/o anaphylaxis with IVIG therapy 2003
CKD 3
HTN
Hyperlipidemia
h/o DVT treated with warfarin approx 2008
Anaphylactic dye allergy
Hyperglycemia, prediabetes
h/o nonobstructive CAD by cath at [facility] approx 2014
Hyperkalemia
Echo 12/09/23: EF 45 to 50%, normal RV size and function, mild TR, trivial MR
Plan:
-Chest pain again overnight and observation assistant 12/10/23. Episodes occurring at rest and Afib is rate controlled on tele at the time. ECGs without acute ischemic changes and Troponin serially undetectable. EF reduced at 45% by echo. Patient agreeable
to cath 12/11/23.
-Will pretreat for cath with the same prep the ER used prior to CT for PE on admission which was hydrocortisone 200 mg IV x1 and Benadryl 25 mg IV x1.
-Chest pain improves with NTG SL, will add Imdur ER 30 mg daily 12/10/23.
-CVE added to AM labs, await result. Patient takes atorvastatin 10 mg daily as an outpatient.
-Cont outpatient dose of aspirin 81 mg daily for now.
-CM could be related to rapid atrial arrhythmia. Talked with patient about cath and then eventual rhythm control strategy including MART/CV this admission vs outpatient CV after 4 weeks of OAC. Patient is leaning towards MART/CV prior to discharge.
-Afib is a new diagnosis. Cardizem gtt changed to Toprol XL 25 mg daily on 12/09/23 and HRs are generally controlled in the 70s to 80s. No palpitations.
-Heparin gtt was transitioned to Eliquis 5 mg BID (age 73, Cre 1.3 and wt 94.6 kg) on 12/08/23 AM, but with the change in plans to perform cath on 12/11/23 the patient was changed back to Heparin gtt on 12/09/23 PM. He tolerate Eliquis well for the 3
doses that he received it. Eventually transition back to Eliquis.
-TSH normal at 0.85
-Hyperglycemia since admission. HgbA1c was 6.1 consistent with prediabetes.
-BMP ordered for 12/11/23.
HPI: Patient came to [facility] Saturday with chest pain and cardiology is now consulted for new Afib and after a rapid response for recurrent chest pain this morning. Patient says that starting 2-3 weeks ago he noticed LLOYD worse than usual, he attributed
this to his known COPD that tends to get worse at times depending on allergies and humidity. He also noticed increased nocturia starting around that time. Then at the end of last week he was having episodes of chest pain that started with activity
and would eventually improve with rest. Chest pain was sharp and left sided and radiated down the left arm. No resting chest pain. In [facility] he was found to be in Afib with RVR which was a new diagnosis for him. He has a h/o DVT so a CT chest was
checked and it was negative for PE. Patient was started on Cardizem gtt for rate control and Heparin gtt as well. He was transitioned to Eliquis 5 mg BID starting Saturday morning. He then had an episode of resting chest pain this morning that he
describes as being similar to his admission symptoms. Patient was still on Cardizem gtt at 5 mg/hr during chest pain episode and Afib was rate controlled in the 70s. ECG at that time was negative for ischemic changes and his chest pain was relieved
with NTG SL x1 and has not recurred.
Progress Note - Sleeve Baster
Subjective
Date of Service: December 10, 2023
Chest pain at rest this morning
Objective
Labs:
12/09/23 08:30
12/09/23 08:30
Labs
Hgb 13.9 g/dL (13.0-18.0) 12/09/23 08:30
Hct 43.6 % (39.0-52.0) 12/09/23 08:30
Plt Count 303 10^3/uL (130-400) 12/09/23 08:30
PT 15.3 Sec (11.4-14.6) H 12/09/23 08:30
INR 1.23 12/09/23 08:30
APTT 61.0 Sec (23.4-35.0) H 12/10/23 07:49
Sodium 136 mmol/L (135-145) 12/09/23 08:30
Potassium 5.7 mmol/L (3.5-5.1) H 12/09/23 08:30
BUN 39 mg/dl (9-20) H 12/09/23 08:30
Creatinine 1.3 mg/dL (0.7-1.3) 12/09/23 08:30
Glucose 126 mg/dl (70-99) H 12/09/23 08:30
Troponins
12/07/23 12/09/23 12/09/23
13:29 08:30 08:30
Troponin I < 0.012 Cancelled Cancelled
12/09/23 12/09/23 12/09/23
14:48 15:37 22:37
Troponin I Cancelled < 0.012 < 0.012
12/10/23
07:49
Troponin I < 0.012
Vital Signs and I&O:
Vital Signs
Temp Pulse Resp BP Pulse Ox
97.9 F 82 16 108/72 96
12/10/23 11:31 12/10/23 11:31 12/10/23 11:31 12/10/23 11:31 12/10/23 11:31
Vital Signs
Temp Pulse Resp BP Pulse Ox
97.9 F 82 16 108/72 96
12/10/23 11:31 12/10/23 11:31 12/10/23 11:31 12/10/23 11:31 12/10/23 11:31
Intake & Output
12/08/23 12/09/23 12/10/23 12/11/23
06:59 06:59 06:59 06:59
Intake Total 1560 / 1560 720 / 720 480 / 480
Output Total 550 / 550 600 / 600 225 / 225
Balance -550 / -550 1560 / 1560 120 / 120 255 / 255
Physical Exam
Physical Exam
GEN: NAD. AAOx3
HEENT: MMM
LUNGS: Wearing oxygen at 2 L NC. No audible wheeze
CV: Afib on tele
ABD: ND
EXT: No edema B/L
NEURO: Gross non-focal
SKIN: No rash
--- NOTE | 2023-12-10 13:13 | PTCARENOTE ---
Pt weaned to room air, assessment otherwise unchanged. Pt OOB in chair. Pt denies CP at this time. Continues on heparin gtt. PTT due at 1430. Call landry in reach.
[2023-12-10 15:31] LABS: APTT 100.9 Sec (23.4-35.0)
[2023-12-10] MEDS: PROTONIX 40 MG PO (17:12)
[2023-12-10 20:40] LABS: HDL Cholesterol 39 mg/dl; LDL Cholesterol, Calculated 53 mg/dl; Total Cholesterol 116 mg/dl (50-199); Triglyceride 121 mg/dl (10-149); Very Low Density Lipoprotein 24 mg/dl (0-30)
[2023-12-10 21:02] LABS: APTT 112.3 Sec (23.4-35.0)
--- NOTE | 2023-12-10 21:05 | PTCARENOTE ---
Pt. complained of 4 out of 10 left sided chest pain at 2020, sharp/heavy, no radiation, some SOB. BP 107/72, A-fib rate 80's on the monitor, RA pulse ox 94%. Pt. laying in bed at the time. 2L O2 placed, Nitro SL x 1 given with complete relief of CP
within 10 minutes. BP did drop to 90/63 but has since increased to 115/76. Ed Sergio notified of episode, no new orders at this time, will notify him if it occurs again.
[2023-12-11] VITALS (17 sets, daily range): BP systolic 99–146; BP diastolic 54–100; BMI 28.0
[2023-12-11 03:33] LABS: Hematocrit 40.3 % (39.0-52.0); Hemoglobin 13.5 g/dL (13.0-18.0); Mean Corp Hgb Conc. 33.5 g/dL (33.0-37.0); Mean Corpuscular Hgb 29.7 pg (27.0-31.0); Mean Corpuscular Volume 88.6 fL (80.0-94.0); Mean Platelet Volume 10.4 fL (7.4-10.4); Platelet Count 276 10^3/uL (130-400); Red Blood Cell Count 4.55 10^6/uL (4.70-6.10); Red Cell Dist. Width 13.5 % (11.5-14.5); White Blood Cell Count 9.8 10^3/uL (4.8-10.8)
[2023-12-11 03:48] LABS: APTT 86.4 Sec (23.4-35.0)
[2023-12-11 03:56] LABS: Blood Urea Nitrogen 44 mg/dl (9-20); Calcium 9.3 mg/dl (8.4-10.2); Carbon Dioxide 20 mmol/L (22-30); Chloride 107 mmol/L (98-107); Estimated Creatinine Clearance 50 ml/min; Glucose 102 mg/dl (70-99); Potassium 4.7 mmol/L (3.5-5.1); Sodium 135 mmol/L (135-145); eGFR 58.37
[2023-12-11] MEDS: HEPARIN 25000 UNITS/250 ML IV (05:58)
--- NOTE | 2023-12-11 07:17 | W.PN.HOSP.TC ---
Today's Communication/Plan
-
See bold
Assessment / Plan
Assessment / Plan
Gen: NAD, AAOx3.
Eyes: EOMI, PERRLA, no scleral icterus.
Neck: supple.
CV: Remains irreg/irreg, +S1/S2, no m/r/g.
Resp: CTAB anteriorly, no rales, wheezes, or rhonchi.
Abd: +BS, soft, NT, ND
Skin: No rashes. No LE edema
Neuro: Remains CN 2-12 intact, non-focal.
Psych: Normal mood and affect.
Echo: EF 45-50%. Normal left ventricular wall thickness. Normal RV size and systolic function. Mildly dilated left atrium with normal left atrial volume index. Trivial mitral regurgitation.
Trileaflet structurally and functionally normal aortic valve
Mild tricuspid regurgitation
Estimated pulmonary artery pressure of 25-30 mmHg. Assuming a right atrial
pressure of 3 mmHg.
Normal pericardium without effusion. No pleural effusion present.
Afib with RVR:
-has been on cardizem gtt (currently at 5mg/hr)
-cont Toprol XL 25mg daily
-currently on heparin gtt
-with recurrent chest pain (which improved with nitroglycerin) trops checked and were NEG. Echo above, no RWMA.
-ECG 12/09/23 without acute ischemic changes
-Cardiology following, discussed with cardiology
-for cath today
Other problems:
COPD: not in acute exac. Cont Spiriva/Striverdi.
BPH: cont Flomax
CIDP: cont Cellcept/neurontin
GERD: cont PPI
OA
FULL/heparin gtt
Anticipated Discharge: 24 - 48 hours
Subjective/Interval History
-
Date of Service: December 11, 2023
Denies chest pain. Complains of shortness of breath.
Objective Data
-
Labs:
Laboratory Results
12/10/23 12/11/23 12/11/23
20:43 03:25 09:25
WBC 9.8
Hgb 13.5
Hct 40.3
Plt Count 276
APTT 112.3 H 86.4 H Pending
Sodium 135
Potassium 4.7
Chloride 107
Carbon Dioxide 20 L
BUN 44 H
Creatinine 1.3
Glucose 102 H
Calcium 9.3
Vital Signs:
Vital Signs
Temp Pulse Resp BP Pulse Ox
98.4 F 72 16 125/73 99
12/11/23 03:10 12/11/23 03:10 12/11/23 03:10 12/11/23 03:10 12/11/23 03:10
I&O
12/10/23 12/11/23 12/12/23
06:59 06:59 06:59
Intake Total 720 / 720 1080 / 1080
Output Total 600 / 600 425 / 425
Balance 120 / 120 655 / 655
[2023-12-11] MEDS: SPIRIVA RESPIMAT 2.5 MCG 2 PUFF INH (08:12)
[2023-12-11] MEDS: STRIVERDI RESPIMAT 2 PUFF INH (08:12)
[2023-12-11] MEDS: NEURONTIN 300 MG PO ×4 (09:30→22:17)
[2023-12-11] MEDS: TRICOR 48 MG PO (09:30)
[2023-12-11] MEDS: CLARITIN 10 MG PO (09:31)
[2023-12-11] MEDS: ASPIR LOW (ENTERIC COATED) 81 MG PO (09:31)
[2023-12-11] MEDS: FLOMAX 0.400000000000000022 MG PO (09:32)
[2023-12-11] MEDS: LIPITOR 10 MG PO (09:32)
[2023-12-11] MEDS: VITAMIN D3 (cholecalciferol) 25 MCG PO ×2 (09:32→20:02)
[2023-12-11] MEDS: CELLCEPT 500 MG PO ×2 (09:32→20:02)
[2023-12-11] MEDS: TOPROL XL 25 MG PO (09:32)
[2023-12-11] MEDS: IMDUR (EXTENDED RELEASE) 30 MG PO (09:32)
[2023-12-11] MEDS: SOLU-CORTEF 200 MG IV (09:47)
--- NOTE | 2023-12-11 09:48 | ITS.CL.CATH ---
Wrecker Driver - Catheterization
Cardiac Catheterization
Procedure Report:
LEFT HEART CATHETERIZATION
Date of Procedure: December 11, 2023
Referring: Tree Jerry
PROCEDURES:
1. Left heart catheterization, coronary angiogram.
2. Ultrasound-guided access.
INDICATION: Patient is a 73-year-old gentleman with multiple comorbid conditions including hypertension, prediabetes, hyperlipidemia, CKD stage III, COPD, CIDP on chronic CellCept therapy, prior history of anaphylaxis with IVIG therapy in 2003,
prior DVT in 2008 treated with brief course of warfarin, contrast dye allergy, prior nonobstructive coronary artery disease by cath in 2014 who presents this admission with ongoing episodes of chest pain was found to have new onset atrial
fibrillation with RVR and serially undetectable troponins was now referred for a left heart catheterization to rule out obstructive CAD in the setting of ongoing chest pain episodes.
ACCESS: Right radial artery, 6 Maori sheath, under ultrasound-guided
HEMODYNAMICS : (mmHg)
AO (s/d) : 111/74
LV (s/d) : 113/9
LVEDP : 16
CORONARY FINDINGS
DOMINANCE: Right
LEFT MAIN: The left main artery is a large-caliber vessel that gives rise to the left anterior descending artery and the left circumflex artery. Angiographically normal vessel.
LEFT ANTERIOR DESCENDING: The left anterior descending artery is a medium to large caliber vessel which gives rise to 1 major diagonal branch and multiple small other diagonal branches as it courses through the anterior interventricular groove
towards the apex. There is minimal luminal irregularities.
CIRCUMFLEX: The left circumflex artery is a medium caliber vessel which gives rise to 3 major obtuse marginal branches, the first 2 originating fairly proximally. There is minimal luminal irregularities.
RIGHT CORONARY ARTERY: The right coronary artery is a large-caliber, dominant vessel which gives rise to the right posterior descending artery and the right posterolateral system. There is minimal luminal irregularities.
SEDATION: 29 minutes of procedural sedation was utilized. An independent medical physiologist was present to assist with and help manage the patient's level of consciousness and physiologic status.
RADIATION SUMMARY: Fluoro Time (min): 3.2, Dose (mGy): 232.85 DAP (Gy.cm2) : 15.9
Closure Device: Vascular band over the right radial artery, 11 cc of air.
CONCLUSIONS
1. No obstructive coronary artery disease.
2. Mildly elevated LVEDP at 16 mmHg.
RECOMMENDATIONS
1. Continued medical management for new onset atrial fibrillation with RVR with possible MART-cardioversion tomorrow morning if atrial fibrillation persists.
2. If no issues at the radial access site, plan to resume Eliquis starting tonight.
3. Wean radial band per protocol.
4. Aggressive management of cardiovascular risk factors.
Copy to: Rogelio Gomez
Lesa Chanel MD, FACC, [facility]
--- NOTE | 2023-12-11 11:00 | PTCARENOTE ---
Patient s/p cardiac cath through right radial. TR Band in Place. No Obvious Oozing, Great Pulse + Sensation.
--- NOTE | 2023-12-11 16:45 | PTCARENOTE ---
Patient with complaint of chest pain to left side of chest, radiates to the middle. Rates 3/10 on pain scale. Describes as 'stabbing, feeling that his heart is racing.' Spoke with AN Duque. To administer lidocaine patch and metoprolol once
ordered.
[2023-12-11] MEDS: LIDOCAINE 4% PATCH 1 PATCH TOPICAL (17:11)
[2023-12-11] MEDS: LOPRESSOR 2.5 MG IV ×2 (17:11→21:32)
[2023-12-11] MEDS: PROTONIX 40 MG PO (17:11)
[2023-12-11] MEDS: ELIQUIS 5 MG PO (20:02)
[2023-12-11] MEDS: DUONEB 3 ML INH (20:42)
--- NOTE | 2023-12-11 21:52 | PTCARENOTE ---
Pt received start of shift, HR afib. Reviewed plan of care w/ pt. Educated pt on what cardioversion is and what to expect, pt states no further questions at this time. Informed of NPO status at 0000. Reinforced activity restrictions in relation to R
arm/R wrist post-cath. R radial site dressing CDI, soft, nontender. Pt denies any CP, SOB, or lightheadedness/dizziness at this time. Informed to notify RN if any changes, call landry within reach.
Pt HR 140-170. PRN 2.5mg IV Metoprolol administered, HR 100-110s.
[2023-12-12 02:17] VITALS: BP 148/94
[2023-12-12] MEDS: NITROSTAT (SUBLINGUAL) 0.400000000000000022 MG SL (02:19)
--- NOTE | 2023-12-12 03:10 | PTCARENOTE ---
Pt c/o 4/10 CP that feels like 'an elephant is standing on my chest'. 2L O2 and SL nitro x1 administered, pain down to 0-1 out of 10.
[2023-12-12 03:41] LABS: Blood Urea Nitrogen 41 mg/dl (9-20); Calcium 9.2 mg/dl (8.4-10.2); Carbon Dioxide 27 mmol/L (22-30); Chloride 103 mmol/L (98-107); Estimated Creatinine Clearance 46 ml/min; Glucose 116 mg/dl (70-99); Potassium 5.1 mmol/L (3.5-5.1); Sodium 136 mmol/L (135-145)
[2023-12-12 06:57] VITALS: BP 146/88
[2023-12-12] MEDS: SPIRIVA RESPIMAT 2.5 MCG 2 PUFF INH (07:49)
[2023-12-12] MEDS: STRIVERDI RESPIMAT 2 PUFF INH (07:50)
--- NOTE | 2023-12-12 07:53 | W.PN.HOSP.TC ---
Addendum entered and electronically signed by Felix Stratton MD 12/12/23 12:13:
Total time spent on d/c = 35 min. This included today's physical exam, progress note, review of laboratory and diagnostic data, preparation of discharge documents and prescriptions, and discussions about the pt's hospital course and discharge plan
with the patient and other medical aide involved in the patient's care.
Original Note:
Today's Communication/Plan
-
see bold
Assessment / Plan
Assessment / Plan
Gen: NAD, AAOx3.
Eyes: EOMI, PERRLA, no scleral icterus.
Neck: supple.
CV: Remains irreg/irreg, +S1/S2, no m/r/g.
Resp: CTAB anteriorly, no rales, wheezes, or rhonchi.
Abd: +BS, soft, NT, ND
Skin: No rashes. No LE edema
Neuro: Remains CN 2-12 intact, non-focal.
MSK: TTP with palpation L chest
Psych: Normal mood and affect.
Echo: EF 45-50%. Normal left ventricular wall thickness. Normal RV size and systolic function. Mildly dilated left atrium with normal left atrial volume index. Trivial mitral regurgitation.
Trileaflet structurally and functionally normal aortic valve
Mild tricuspid regurgitation
Estimated pulmonary artery pressure of 25-30 mmHg. Assuming a right atrial
pressure of 3 mmHg.
Normal pericardium without effusion. No pleural effusion present.
Cardiac cath ([facility]):
1. No obstructive coronary artery disease.
2. Mildly elevated LVEDP at 16 mmHg.
Afib with RVR:
-has been on cardizem gtt (currently at 5mg/hr)
-cont Toprol XL/Eliquis
-with recurrent chest pain (which improved with nitroglycerin) trops checked and were NEG. Echo above, no RWMA.
-ECG 12/09/23 without acute ischemic changes
-Cardiac cath above, no obstructive CAD
Other problems:
COPD: not in acute exac. Cont Spiriva/Striverdi.
BPH: cont Flomax
CIDP: cont Cellcept/neurontin
GERD: cont PPI
OA
FULL/Eliquis
Anticipated Discharge: Within 24 hours
Subjective/Interval History
-
Date of Service: December 12, 2023
Patient reports left-sided chest pain. Denies shortness of breath.
Objective Data
-
Labs:
Laboratory Results
12/12/23
02:56
Sodium 136
Potassium 5.1
Chloride 103
Carbon Dioxide 27
BUN 41 H
Creatinine 1.4 H
Glucose 116 H
Calcium 9.2
Vital Signs:
Vital Signs
Temp Pulse Resp BP Pulse Ox
98.1 F 78 18 146/88 99
12/12/23 06:57 12/12/23 07:00 12/12/23 06:57 12/12/23 06:57 12/12/23 06:57
I&O
12/11/23 12/12/23 12/13/23
06:59 06:59 06:59
Intake Total 1080 / 1080
Output Total 425 / 425 1350 / 1350
Balance 655 / 655 -1350 / -1350
[2023-12-12] MEDS: TRICOR 48 MG PO (08:58)
[2023-12-12] MEDS: FLOMAX 0.400000000000000022 MG PO (08:58)
[2023-12-12] MEDS: ASPIR LOW (ENTERIC COATED) 81 MG PO (08:58)
[2023-12-12] MEDS: TOPROL XL 25 MG PO (08:58)
[2023-12-12] MEDS: NEURONTIN 300 MG PO ×2 (08:58→12:35)
[2023-12-12] MEDS: IMDUR (EXTENDED RELEASE) 30 MG PO (08:59)
[2023-12-12] MEDS: VITAMIN D3 (cholecalciferol) 25 MCG PO (08:59)
[2023-12-12] MEDS: LIPITOR 10 MG PO (08:59)
[2023-12-12] MEDS: ELIQUIS 5 MG PO (08:59)
[2023-12-12] MEDS: CLARITIN 10 MG PO (08:59)
[2023-12-12] MEDS: CELLCEPT 500 MG PO (08:59)
--- NOTE | 2023-12-12 09:15 | PTCARENOTE ---
Assumed care of pt from prev nsg shift AAOx3. Pt w/c/o 07/10 CP, pt declining SL Nitro at this time, stating 'pain is tolerable'. Pt w/no c/o SOB. Pt's VS stable w/HR in the 80's-90's. BP stable at 146/88 this AM. Pt continues to be Afib on telemetry
monitoring. Pt anxiously awaiting planned MART/CV today. Pt w/no addtl needs at this time. Plan of care ongoing.
--- NOTE | 2023-12-12 10:21 | CM ---
Chart reviewed. Patient is independent of ADLS, lives with his in a [address], ambulates with a SPC. Patient is waiting for a MART/CV. Plan is for the patient to return home once medically stable. CM to follow
--- NOTE | 2023-12-12 10:38 | W.PN.CARDCBS ---
Addendum entered and electronically signed by Jose Miguel Rainey MD 12/12/23 11:15:
I saw and examined the patient.
The Firmware Developer's note was reviewed and I agree with the note.
Comment:
GEN: No distress, awake, Ox3
HEENT: supple, anicteric, mmm
LUNGS: CTA, no wheezes/rales
CV: Reg, S1/S2, /6 syst LSB, no gallop
ABD: soft, BS+, NT/ND
EXT: No edema
NEURO: Gross non-focal
SKIN: No rash
Plan:
MART With LVEF 55% and mild to moderate MR, no left atrial appendage thrombus, patient was successfully cardioverted back into sinus rhythm.
Continue Toprol and Eliquis. Stop aspirin.
Restart amlodipine and stopped Imdur.
OK for D/C
Original Note:
Today's Communication / Plan
-
MART/CV today
Stop Imdur ER
Restart outpatient dose of amlodipine
Cont newly started Toprol XL
Stop aspirin
Cont newly started Eliquis
e-scribed Toprol XL and Eliquis
Impression / Plan
-
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
Cardiology: Dr. Teran, last seen 04/17/22
Impression:
Chest pain
Nonobstructive CAD by cath 12/11/23
Newly diagnosed Afib with RVR on admission 12/07/23
COPD
CIDP on chronic CellCept therapy
h/o anaphylaxis with IVIG therapy 2003
CKD 3
HTN
Hyperlipidemia
h/o DVT treated with warfarin approx 2008
Anaphylactic dye allergy
Hyperglycemia, prediabetes
h/o nonobstructive CAD by cath at [facility] approx 2014
Hyperkalemia
Echo 12/09/23: EF 45 to 50%, normal RV size and function, mild TR, trivial MR
Plan:
-Patient with recurrent resting chest pain that was consistently improved with NTG SL this admission. Troponin serially undetectable. Echo showed EF 45% without WMA. Patient had cardiac cath 12/11/23 that showed nonobstructive CAD.
-Imdur ER 30 mg daily added earlier this admission due, will stop.
-Patient remains in Afib. Rates were faster on admission and patient was on Cardizem gtt, but then transitioned to Toprol XL 25 mg daily.
-Plan is for a MART/CV 12/12/23. Talked with patient and his , Susie, about MART/CV on 12/12/23. Reviewed procedures and the need for MART given unknown duration of Afib.
-Hgb stable with addition of Eliquis 5 mg BID this admission. Appreciate help of CM in checking cost, patient is on his 's commercial insurance plan and can use the $10 co-pay card.
-Outpatient dose of amlodipine 5 mg daily was held on admission due to need for Cardizem gtt, will restart amlodipine 5 mg daily on 12/12/23.
-LDL 53. Cont outpatient dose of atorvastatin 10 mg daily.
-Will stop outpatient aspirin 81 mg daily now that patient needs Eliquis.
-TSH normal at 0.85
-Hyperglycemia since admission. HgbA1c was 6.1 consistent with prediabetes.
-Likely d/c to home 12/12/23 following MART/CV. e-scribed Eliquis and Toprol XL. Outlined additional med changes on discharge instructions. Cardiology f/u arranged.
HPI: Patient came to [facility] Saturday with chest pain and cardiology is now consulted for new Afib and after a rapid response for recurrent chest pain this morning. Patient says that starting 2-3 weeks ago he noticed LLOYD worse than usual, he attributed
this to his known COPD that tends to get worse at times depending on allergies and humidity. He also noticed increased nocturia starting around that time. Then at the end of last week he was having episodes of chest pain that started with activity
and would eventually improve with rest. Chest pain was sharp and left sided and radiated down the left arm. No resting chest pain. In [facility] he was found to be in Afib with RVR which was a new diagnosis for him. He has a h/o DVT so a CT chest was
checked and it was negative for PE. Patient was started on Cardizem gtt for rate control and Heparin gtt as well. He was transitioned to Eliquis 5 mg BID starting Saturday morning. He then had an episode of resting chest pain this morning that he
describes as being similar to his admission symptoms. Patient was still on Cardizem gtt at 5 mg/hr during chest pain episode and Afib was rate controlled in the 70s. ECG at that time was negative for ischemic changes and his chest pain was relieved
with NTG SL x1 and has not recurred.
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
Subjective
Date of Service: December 12, 2023
No recurrence of chest pain
Objective
Labs:
12/11/23 03:25
12/12/23 02:56
Labs
Hgb 13.5 g/dL (13.0-18.0) 12/11/23 03:25
Hct 40.3 % (39.0-52.0) 12/11/23 03:25
Plt Count 276 10^3/uL (130-400) 12/11/23 03:25
PT 15.3 Sec (11.4-14.6) H 12/09/23 08:30
INR 1.23 12/09/23 08:30
APTT Cancelled 12/11/23 09:25
Sodium 136 mmol/L (135-145) 12/12/23 02:56
Potassium 5.1 mmol/L (3.5-5.1) 12/12/23 02:56
BUN 41 mg/dl (9-20) H 12/12/23 02:56
Creatinine 1.4 mg/dL (0.7-1.3) H 12/12/23 02:56
Glucose 116 mg/dl (70-99) H 12/12/23 02:56
Troponins
12/09/23 12/09/23 12/09/23
08:30 08:30 14:48
Troponin I Cancelled Cancelled Cancelled
12/09/23 12/09/23 12/10/23
15:37 22:37 07:49
Troponin I < 0.012 < 0.012 < 0.012
Vital Signs and I&O:
Vital Signs
Temp Pulse Resp BP Pulse Ox
98.1 F 76 16 146/88 98
12/12/23 06:57 12/12/23 07:53 12/12/23 07:53 12/12/23 06:57 12/12/23 07:53
Vital Signs
Temp Pulse Resp BP Pulse Ox
98.1 F 76 16 146/88 98
12/12/23 06:57 12/12/23 07:53 12/12/23 07:53 12/12/23 06:57 12/12/23 07:53
Intake & Output
12/10/23 12/11/23 12/12/23 12/13/23
06:59 06:59 06:59 06:59
Intake Total 720 / 720 1080 / 1080
Output Total 600 / 600 425 / 425 1350 / 1350
Balance 120 / 120 655 / 655 -1350 / -1350
Physical Exam
Physical Exam
GEN: NAD. AAOx3
HEENT: MMM
LUNGS: No audible wheeze
CV: Afib on tele
ABD: ND
EXT: No edema B/L
NEURO: Gross non-focal
SKIN: No rash
--- NOTE | 2023-12-12 11:15 | ITS.CL.CARDI ---
Order Management Specialist - Cardioversion
Cardioversion
Procedure Report:
Date of Procedure:
Procedure: Cardioversion
Indication: Symptomatic atrial fibrillation
Performing Physician: Marino Rainey MD
Technique: The patient was brought to the holding area. Signed informed consent was obtained. A time out was called and performed. The patient was anesthetized by the anesthesia service. Anticoagulation status was reviewed and appropriate. R2 pads
were placed anteriorly and posteriorly. After MART revealed no LA appendage thrombus, a 200 J synchronized biphasic shock restored normal sinus rhythm without significant bradycardia. There were no complications.
Conclusion: Uncomplicated cardioversion from atrial fibrillation to sinus rhythm.
Recommendation: Routine post cardioversion care. Continue halfway anticoagulation.
[2023-12-12 11:49] VITALS: BP 129/72
--- NOTE | 2023-12-12 12:10 | W.PN.UPDATE ---
Update Note
Progress Note Update
Patient has had a cardioversion to sinus rhythm. Cardiology has cleared the patient for discharge.
--- NOTE | 2023-12-12 12:17 | W.DCSUMMARY ---
Discharge Summary
Discharge Data
Date of Admission: 12/07/23
Date of Discharge: 12/12/23
-
Pending Results: No
Hospital Course
Primary diagnoses:
Atrial fibrillation with a rapid ventricular response status post MART cardioversion
Secondary diagnoses:
Chronic obstructive pulmonary disease
Benign prostatic hypertrophy
Chronic idiopathic demyelinating polyneuropathy
Gastroesophageal reflux disease
Osteoarthritis
Consultants:
Cardiology
Imaging:
Echo: EF 45-50%. Normal left ventricular wall thickness. Normal RV size and systolic function. Mildly dilated left atrium with normal left atrial volume index. Trivial mitral regurgitation.
Trileaflet structurally and functionally normal aortic valve
Mild tricuspid regurgitation
Estimated pulmonary artery pressure of 25-30 mmHg. Assuming a right atrial
pressure of 3 mmHg.
Normal pericardium without effusion. No pleural effusion present.
Cardiac cath ([facility]):
1. No obstructive coronary artery disease.
2. Mildly elevated LVEDP at 16 mmHg.
Hospital course: 73-year-old male who presented with chief complaints of chest pain and palpitations on the H&P done on admission. Patient was found to be in atrial fibrillation with a rapid ventricular response. He was placed on a Cardizem drip.
He was transitioned to oral Toprol-XL. He was initially placed on Eliquis but then had recurrent chest pain that improved with nitroglycerin. Troponins were negative. Echocardiogram above. Cardiac cath above. The patient was taken for MART
cardioversion and converted to sinus rhythm. He was discharged in medically stable condition.
Discharge Plan
-
Discharge Diagnosis/Procedures: Newly diagnosed paroxysmal atrial fibrillation, s/p transesophageal echo and cardioversion 12/12/23, nonobstructive coronary artery disease by cardiac catheterization 12/11/23
Diet: Low Cholesterol
Activity: Other activity
Driving Restrictions: No driving for 24 hours
Bathing Restrictions: OK to Shower
Stand Alone Forms: DC Instructions- Cath/EP Lab
Referrals:
Aliyn Fabian CRNP [Family Provider] -
Gala Curry PA-C [Specified Professional Personl] - 01/10/24 9:20 am
Additional Discharge Medication Instructions: -STOP taking aspirin
-Start taking Eliquis 5 mg twice a day
-Start taking Toprol XL (metoprolol succinate) 25 mg once a day
Prescriptions:
New
Eliquis 5 mg Tablet
5 mg PO BID Qty: 60 11RF
metoprolol succinate [Toprol XL] 25 mg tablet extended release 24 hr
25 mg PO DAILY Qty: 30 11RF
Continued
atorvastatin 10 MG tablet
10 mg PO DAILY
omeprazole 40 MG capsule,delayed release(DR/EC)
40 mg PO QPM
gabapentin 300 MG capsule
300 mg PO QID
fenofibrate 160 MG tablet
80 mg PO DAILY
fluticasone propionate 1 SPRAY spray,suspension
2 spray intranasal DAILYPRN PRN (Reason: nasal congestion)
amlodipine 5 mg Tablet
5 mg PO DAILY
tamsulosin 0.4 mg Capsule
0.4 mg PO DAILY
loratadine [Claritin] 10 mg Tablet
10 mg PO DAILY
Stiolto Respimat 2.5-2.5 mcg/actuation Mist
2 puff INHALATION R DAILY
ipratropium-albuterol 0.5 mg-3 mg(2.5 mg base)/3 mL solution for nebulization
3 ml INHALATION R QIDPRN PRN (Reason: SOB)
mycophenolate mofetil 500 mg tablet
500 mg PO BID
albuterol sulfate [ProAir HFA] 90 mcg/actuation Hfa Aerosol Inhaler
2 inh INHALATION R DAILY
cholecalciferol (vitamin D3) [Vitamin D3] 25 mcg (1,000 unit) Tablet
25 mcg PO BID
Discontinued
aspirin 81 mg Tablet,Delayed Release (Dr/Ec)
81 mg PO DAILY
Discharge Orders:
Discharge Patient (As Directed); Ordered 12/12/23
Ordered By: Felix Stratton
Care Plan Goals
Care Plan Goals:
Problem: Readiness for enhanced knowledge related to diagnosis and treatment plan
Goal: Understand your diagnosis and treatment plan needs, including medications if applicable.
Instructions: Know your diagnosis, underlying causes and treatment plan options, including medications if applicable. Consult with your health care team to learn about your diagnosis and treatment plan, including medications if applicable.
Discharge Date and Time
Print Language: DANISH
[2023-12-12] MEDS: NORVASC 5 MG PO (12:35)
--- NOTE | 2023-12-12 15:08 | PTCARENOTE ---
Pt received at 1000 in Afib, rate in the 80's to 120's. Denied any chest pain or sob. Pt went for the MART/CV which was successful and returned in SR. Pt later discharged to home with his . Discharge instructions given and reviewed with pt and
his with good understanding and all questions answered.
== END 2023-12-12 15:18 | disposition home or self-care (01) | DRG 287 ==
LOC: IVU 19:33
PROVIDERS: Internal Medicine Cardiovascular Disease; Internal Medicine Interventional Cardiology; Nurse Practitioner Adult Health; Physician Assistant; Physician Assistant Medical; ADMITTING PHYSICIAN Internal Medicine; ATTENDING PHYSICIAN Internal Medicine; EMERGENCY PHYSICIAN Emergency Medicine; FAMILY PHYSICIAN Nurse Practitioner Adult Health; OTHER PHYSICIAN Internal Medicine Cardiovascular Disease
PROC: 4A023N7 Measurement of Cardiac Sampling and Pressure, Left Heart, Percutaneous Approach (ICD-10-PCS; 2023-12-11)
PROC: B2111ZZ Fluoroscopy of Multiple Coronary Arteries using Low Osmolar Contrast (ICD-10-PCS; 2023-12-11)
PROC: B24BZZ4 Ultrasonography of Heart with Aorta, Transesophageal (ICD-10-PCS; 2023-12-12)
PROC: 5A2204Z Restoration of Cardiac Rhythm, Single (ICD-10-PCS; 2023-12-12)
DX: I48.0 Paroxysmal atrial fibrillation (principal); G61.81 Chronic inflammatory demyelinating polyneuritis; J43.9 Emphysema, unspecified; I12.9 Hypertensive chronic kidney disease with stage 1 through stage 4 chronic kidney disease, or unspecified chronic kidney disease; N18.30 Chronic kidney disease, stage 3 unspecified; F17.200 Nicotine dependence, unspecified, uncomplicated; K21.9 Gastro-esophageal reflux disease without esophagitis; I25.10 Atherosclerotic heart disease of native coronary artery without angina pectoris; E87.5 Hyperkalemia; R73.03 Prediabetes; N40.1 Benign prostatic hyperplasia with lower urinary tract symptoms; R35.1 Nocturia; R73.9 Hyperglycemia, unspecified; M19.90 Unspecified osteoarthritis, unspecified site; Z86.718 Personal history of other venous thrombosis and embolism; Z79.51 Long term (current) use of inhaled steroids; Z88.1 Allergy status to other antibiotic agents; Z88.5 Allergy status to narcotic agent; Z88.0 Allergy status to penicillin; Z88.8 Allergy status to other drugs, medicaments and biological substances; Z79.82 Long term (current) use of aspirin; Z91.041 Radiographic dye allergy status; Z87.892 Personal history of anaphylaxis; Z79.624 Long term (current) use of inhibitors of nucleotide synthesis
CPT/HCPCS: 71045; 71275; 80048; 80053; 80061; 83036; 83735; 84443; 84484; 85025; 85027; 85610; 85730; 92960; 93005; 93306; 93312; 93320; 93325; 93458; 94640; 96361; 96374; 96375; 99152; 99153; 99285; C1894; Q9967

== ENCOUNTER → 2024-03-12 08:15 | Outpatient (REF) | payer BC, SELFPAY | LOC: HWRCS 08:15 | PROVIDERS: ATTENDING PHYSICIAN Physician Assistant; FAMILY PHYSICIAN Nurse Practitioner Adult Health | DX: I48.0 Paroxysmal atrial fibrillation (principal); I42.8 Other cardiomyopathies; I10 Essential (primary) hypertension | CPT/HCPCS: 93306 ==

== ENCOUNTER → 2024-05-18 11:11 | Outpatient (REF) | payer BC, SELFPAY | LOC: DHSLP 11:11 | PROVIDERS: ATTENDING PHYSICIAN Internal Medicine Cardiovascular Disease; FAMILY PHYSICIAN Nurse Practitioner Adult Health | DX: G47.30 Sleep apnea, unspecified (principal); R06.83 Snoring; R40.0 Somnolence | CPT/HCPCS: 95800 ==

== ENCOUNTER → 2024-06-08 09:53 | Outpatient (REF) | payer BC, SELFPAY | LOC: RAD 09:53 | PROVIDERS: ATTENDING PHYSICIAN Internal Medicine Cardiovascular Disease; FAMILY PHYSICIAN Nurse Practitioner Adult Health | DX: I48.0 Paroxysmal atrial fibrillation (principal); I48.91 Unspecified atrial fibrillation | CPT/HCPCS: 75572; Q9967 ==

== ENCOUNTER 2024-06-26 08:20 | Day surgery (SDC) | payer BC, SELFPAY ==
[2024-06-03 09:07] VITALS: BMI 31.6
[2024-06-03 09:46] LABS: % Basophils 1.1 % (0-2); % Eosinophils 4.8 % (0-6); % Immature Granulocytes 0.2 % (0-0.5); % Lymphocytes 17.7 % (20.5-51.1); % Monocytes 9.4 % (1.7-9.3); % Neutrophils 66.8 % (42.2-75.2); Absolute Basophils 0.1 10^3/uL (0-0.2); Absolute Eosinophils 0.2 10^3/uL (0-0.7); Absolute Lymphocytes 0.8 10^3/uL (1.2-3.4); Absolute Monocytes 0.4 10^3/uL (0.1-0.6); Absolute Neutrophils 2.9 10^3/uL (1.4-6.5); Hematocrit 39.7 % (39.0-52.0); Hemoglobin 12.7 g/dL (13.0-18.0); Mean Corpuscular Hgb 29.6 pg (27.0-31.0); Mean Corpuscular Volume 92.5 fL (80.0-94.0); Mean Platelet Volume 10.6 fL (7.4-10.4); Nucleated Red Blood Cells % 0 % (-); Platelet Count 214 10^3/uL (130-400); Red Blood Cell Count 4.29 10^6/uL (4.70-6.10); Red Cell Dist. Width 12.9 % (11.5-14.5); White Blood Cell Count 4.4 10^3/uL (4.8-10.8)
[2024-06-03 09:53] LABS: INR 1.23; PT 16.1 Sec (11.4-14.6)
[2024-06-03 10:03] LABS: ALT (SGPT) 19 U/L (0-50); AST (SGOT) 30 U/L (17-59); Albumin 4.3 g/dl (3.5-5.0); Alkaline Phosphatase 56 U/L (38-126); Blood Urea Nitrogen 28 mg/dl (9-20); Calcium 9.2 mg/dl (8.4-10.2); Carbon Dioxide 27 mmol/L (22-30); Chloride 103 mmol/L (98-107); Estimated Creatinine Clearance 51 ml/min; Glucose 100 mg/dl (70-99); Magnesium 2.3 mg/dl (1.6-2.3); Potassium 5.1 mmol/L (3.5-5.1); Sodium 140 mmol/L (135-145); Total Bilirubin 0.5 mg/dl (0.2-1.3); Total Protein 6.5 g/dl (6.3-8.2); eGFR 53.07
--- NOTE | 2024-06-10 07:36 | W.SUR.PREOP ---
Pre-Operative Surgical Note
-
Pre-op chest CT on 06/08/2024 revealing normal nonanomalous pulmonary venous anatomy, with accessory pulmonary veins on the right.
Thankfully, no left atrial filling defect/thrombus identified.
With these favorable results, can proceed as planned with PVI 06/26/2024.
[2024-06-26] VITALS (14 sets, daily range): BP systolic 110–152; BP diastolic 61–71; BMI 30.7
[2024-06-26] MEDS: FLOMAX 0.4 MG PO (09:23)
[2024-06-26] MEDS: TYLENOL 1000 MG PO (09:39)
[2024-06-26 10:52] LABS: ACT-LR - POC 277 Seconds (116-155)
[2024-06-26 11:08] LABS: ACT-LR - POC 314 Seconds (116-155)
[2024-06-26 11:34] LABS: ACT-LR - POC 358 Seconds (116-155)
[2024-06-26 12:02] LABS: ACT-LR - POC 182 Seconds (116-155)
[2024-06-26 12:16] LABS: ACT-LR - POC > 397 Seconds (116-155)
[2024-06-26] MEDS: SUBLIMAZE 25 MCG IV (13:33)
--- NOTE | 2024-06-26 13:33 | ITS.CL.ABL ---
Cloth Printing Back Tender - Ablation
Ablation
Procedure Report:
Primary Tumbler Operator: Rogelio Teran MD
Procedure Date: 06/26/2024
Patient History:
Patient is a very pleasant 74-year-old male with past medical history significant for hypertension, hyperlipidemia, COPD, chronic inflammatory demyelinating polyneuritis, CKD 3A, LAFB, nonischemic cardiomyopathy with recovered EF, nonobstructive
CAD, symptomatic paroxysmal atrial fibrillation.
See H&P for complete details.
Indication:
Symptomatic paroxysmal atrial fibrillation
Nonischemic cardiomyopathy with recovered EF
Arrhythmia Specific History:
Prior Medical Therapies for Rate and Rhythm Control:
X Beta-filomena
[ ] Calcium channel-filomena
[ ] Amiodarone
[ ] Dronederone
[ ] Sotalol
[ ] Flecainide
[ ] Dofetilide
[ ] Options limited by bradycardia
[ ] Options limited by comorbid renal disease
Prior Procedural Therapies for AF/AFL:
X Cardioversion
[ ] Pulmonary Vein Isolation
[ ] Posterior Wall Isolation
[ ] Additional lines (Specify)
[ ] Surgical Dunn-MAZE or PVI (Specify)
Procedure Performed:
X AF ablation procedure (33186) -- includes LA/CS pacing, trans-septal, 3D mapping, + ICE
[ ] +IV drug (88333)
[ ] +Other Arrhythmia (59142)
[ ] +Other AF Line/ablation (96999)
Risks and expected recovery has been explained in detail. Alternative options have been explored, and in a shared-decision making fashion we have decided that this was the most appropriate procedure.
Method
NPO status confirmed. Grounding pad applied. Defibrillator pads applied. Continuous surface ECG, pulse oximetry, and blood pressure were monitored. Procedure was performed under general anesthesia, with anesthesia services.
Both groins were clipped, prepped with Chloraprep, and draped in sterile fashion. Time out was called. Local anesthesia administered with bupivacaine. The right femoral vein was accessed for catheter placement, using ultrasound guidance,
micro-puncture needle/wire, and modified seldinger technique. 3 sheaths were placed. The following catheters were used:
[ ] Tacticath SE (D/F Curve) ablation catheter
X Viewflex 9Fr ICE catheter
X Inquiry decapolar 6Fr diagnostic catheter
[ ] CRD Hex 6Fr
[ ] Arctic Front Advance Cryoballoon ([ ]28mm[ ]23mm)
[ ] Achieve Advance mapping catheter ([ ]15mm[ ]20mm)
X FlexCath Contour 10 Fr with PulseSelect PFA Catheter
X Advisor HD Grid Mapping Catheter, SE
[ ] AcusBrainiac TV AcuNav 8 Fr ICE catheter
[ ]Other: [ ]
Intracardiac ultrasound (ICE) was carefully advanced into the right atrium to guide sheath placement over a J-wire, catheter placement, guide trans-septal puncture, identify potential complications, identify anatomic structures and ensure proper
contact between ablation catheter and tissue. A trace basally located pericardial effusion was noted behind LV at the initiation of case which remained unchanged throughout and at case completion.
Heparin was given prior to trans-septal puncture. Heparin was given to achieve and maintain a target ACT of 300-400 seconds throughout the procedure.
Trans-septal access was performed under ICE guidance. The trans-septal puncture was performed with a SafeSept wire through a Brockenbrough needle assembly through the steerable sheath. The wire was visualized as it entered the LSPV and system
advanced under ICE guidance and fluoroscopy into the LA. The Brockenbrough needle assembly, SafeSept wire and sheath dilator were removed under negative pressure. LA pressure was measured and recorded.
ICE and 3D mapping was performed to identify relevant cardiac structures. A careful 3D map was created to assess for regions of low-voltage and abnormal electrogram signals using HD grid mapping catheter and PulseSelect catheter. Additional mapping
was performed as outlined below.
Prior to ablation, glycopyrrolate was provided. PulseSelect catheter was advanced over J-wire to the ostium of each vein. Pulmonary vein isolation was performed with ostial and antral lesions in a circumferential manner. Contact was visualized via
EAM, ICE, fluoroscopy, and EGM signals. Following completion of ablation lesions, a post-ablation voltage/activation map was performed in sinus rhythm. Entrance and exit block were confirmed for each vein.
Catheter and sheath were removed from the left atrium and post-ablation intracardiac echo evaluation was consistent with pre-ablation with no changes and no pericardial effusion and there is no left atrial thrombus or left ventricle thrombus seen.
Electrophysiology study was performed. Hemostasis was obtained with figure of 8 stitch for each groin and with manual pressure. Protamine was used for reversal.
Estimated Blood Loss
5 mL
Complications
None
Fluoroscopy: 4.9 minutes; 18.53 mGy; DAP 2.19
Baseline Intervals:
Rhythm: SR
IA: 134 ms
QRS: 113 ms
QT: 386 ms
QTc: 407 ms
A-A: 890 ms
R-R: 890 ms
Post-Procedure Intervals:
IA: 138 ms
QRS: 106 ms
QT: 393 ms
QTc: 414 ms
A-A: 900 ms
R-R: 900 ms
AVWB: 290 ms
AVNERP: 600/250 ms
Recommendations
- Bedrest with straight-leg precautions as ordered
- Anticipate same day discharge if patient meeting clinical metrics
- Resume home medications as indicated
- Ok to resume anticoagulation tonight if patient and groin sites stable
- PPI daily for 30 days
- Plan for follow-up in office with [facility] in 2 weeks; primary blow off worker as scheduled
Elijah Ellison DO
Clinical Cardiac Grease Renderer
cc: Rogelio Teran MD; EMMA Sears
--- NOTE | 2024-06-26 15:15 | W.PN.UPDATE ---
Update Note
Progress Note Update
Pt seen post PFA. Right groin site without ht/bleeding, oob ambulating, urinating without difficulty. Post EKG NSR 70s, no acute changes. Resume eliquis tonight at usual time, continue other meds as before. Followup at [facility] as scheduled. Home later
today if groin site/tele remain stable.
== END 2024-06-26 17:05 | disposition home or self-care (01) ==
LOC: CATH 08:20
PROVIDERS: ATTENDING PHYSICIAN Internal Medicine Cardiovascular Disease; FAMILY PHYSICIAN Nurse Practitioner Adult Health
DX: I48.0 Paroxysmal atrial fibrillation (principal); I12.9 Hypertensive chronic kidney disease with stage 1 through stage 4 chronic kidney disease, or unspecified chronic kidney disease; N18.31 Chronic kidney disease, stage 3a; E78.5 Hyperlipidemia, unspecified; I25.10 Atherosclerotic heart disease of native coronary artery without angina pectoris; I42.8 Other cardiomyopathies; J44.9 Chronic obstructive pulmonary disease, unspecified; K21.9 Gastro-esophageal reflux disease without esophagitis; Z86.0100 Personal history of colon polyps, unspecified; G61.81 Chronic inflammatory demyelinating polyneuritis; E66.9 Obesity, unspecified; Z68.31 Body mass index [BMI] 31.0-31.9, adult; M51.369 Other intervertebral disc degeneration, lumbar region without mention of lumbar back pain or lower extremity pain; I45.2 Bifascicular block; Z86.718 Personal history of other venous thrombosis and embolism; L71.9 Rosacea, unspecified; D64.9 Anemia, unspecified; Z85.820 Personal history of malignant melanoma of skin; N40.0 Benign prostatic hyperplasia without lower urinary tract symptoms; N52.9 Male erectile dysfunction, unspecified; M10.9 Gout, unspecified; F41.9 Anxiety disorder, unspecified; D72.819 Decreased white blood cell count, unspecified; Z87.891 Personal history of nicotine dependence; Z79.899 Other long term (current) drug therapy; Z79.01 Long term (current) use of anticoagulants; Z88.0 Allergy status to penicillin; Z88.1 Allergy status to other antibiotic agents; Z88.8 Allergy status to other drugs, medicaments and biological substances; Z91.041 Radiographic dye allergy status; Z88.5 Allergy status to narcotic agent
CPT/HCPCS: C1732; C1894; C1730; C1733; C1769; 36415; 80053; 83735; 85025; 85347; 85610; 86850; 86900; 86901; 93005; 93656; C1766; C1889

== ENCOUNTER → 2024-09-29 09:35 | Outpatient (REF) | payer MEDICARE, OTHER, SELFPAY | LOC: RAD 09:35 | PROVIDERS: ATTENDING PHYSICIAN Nurse Practitioner Adult Health | DX: R13.19 Other dysphagia (principal); I48.0 Paroxysmal atrial fibrillation | CPT/HCPCS: 74221 ==

== ENCOUNTER 2025-02-02 06:09 | Day surgery (SDC) | payer MEDICARE, OTHER, SELFPAY ==
[2025-02-02 07:30] VITALS: BMI 28.1
[2025-02-02 07:35] VITALS: BP 132/71
[2025-02-02 07:59] VITALS: BMI 28.1
[2025-02-02 09:00] VITALS: BP 122/72
[2025-02-02 09:15] VITALS: BP 132/71
[2025-02-02 09:30] VITALS: BP 131/67
== END 2025-02-02 09:42 | disposition home or self-care (01) ==
LOC: GI 06:09
PROVIDERS: ATTENDING PHYSICIAN Internal Medicine
DX: Z12.11 Encounter for screening for malignant neoplasm of colon (principal); K57.30 Diverticulosis of large intestine without perforation or abscess without bleeding; N40.0 Benign prostatic hyperplasia without lower urinary tract symptoms; Z53.8 Procedure and treatment not carried out for other reasons; Z86.0101 Personal history of adenomatous and serrated colon polyps
CPT/HCPCS: G0105

== ENCOUNTER 2025-02-04 06:28 | Day surgery (SDC) | payer MEDICARE, OTHER, SELFPAY | END 2025-02-04 12:21 | disposition home or self-care (01) | LOC: GI 06:28 | PROVIDERS: ATTENDING PHYSICIAN Internal Medicine Gastroenterology | DX: Z12.11 Encounter for screening for malignant neoplasm of colon (principal); K57.30 Diverticulosis of large intestine without perforation or abscess without bleeding; K63.5 Polyp of colon; Z86.0100 Personal history of colon polyps, unspecified | CPT/HCPCS: 45385; 88305 ==

== ENCOUNTER 2025-03-09 06:07 | Day surgery (SDC) | payer MEDICARE, OTHER, SELFPAY ==
[2025-03-09 08:10] VITALS: BMI 27.9
[2025-03-09 08:15] VITALS: BP 141/62
[2025-03-09 08:25] VITALS: BMI 27.9
[2025-03-09 10:15] VITALS: BP 109/57
[2025-03-09 10:30] VITALS: BP 122/63
[2025-03-09 10:41] VITALS: BP 131/67
== END 2025-03-09 11:00 | disposition home or self-care (01) ==
LOC: SDS 06:07
PROVIDERS: ATTENDING PHYSICIAN Internal Medicine Gastroenterology
DX: R13.10 Dysphagia, unspecified (principal); R93.3 Abnormal findings on diagnostic imaging of other parts of digestive tract
CPT/HCPCS: 43249

== ENCOUNTER → 2025-03-30 12:18 | Outpatient (REF) | payer MEDICARE, OTHER, SELFPAY ==
[2025-03-30 15:49] LABS: Magnesium 2.2 mg/dl (1.6-2.3)
[2025-03-30 16:10] LABS: Vitamin D, 25-OH*** 52.3 ng/mL (30-80)
[2025-03-30 16:59] LABS: Folate 7.5 ng/ml (2.76-20); Vitamin B12 289 pg/ml (239-931)
== END ==
LOC: HWLAB 12:18
PROVIDERS: ATTENDING PHYSICIAN Nurse Practitioner Adult Health
DX: I48.0 Paroxysmal atrial fibrillation (principal); I10 Essential (primary) hypertension; R73.03 Prediabetes; N18.31 Chronic kidney disease, stage 3a; R79.89 Other specified abnormal findings of blood chemistry; R29.890 Loss of height; R41.3 Other amnesia; I48.91 Unspecified atrial fibrillation
CPT/HCPCS: 36415; 82306; 82607; 82746; 83735; 84443; 84480

== ENCOUNTER 2025-05-31 06:54 | Outpatient (RCR) | payer SELFPAY | END 2025-05-31 14:26 | disposition home or self-care (01) | LOC: ROT 06:54 | PROVIDERS: ATTENDING PHYSICIAN Psychiatry & Neurology Neurology; FAMILY PHYSICIAN Nurse Practitioner Adult Health | DX: Z02.4 Encounter for examination for driving license (principal); G62.9 Polyneuropathy, unspecified ==

== ENCOUNTER → 2025-06-25 09:46 | Outpatient (REF) | payer MEDICARE, OTHER, SELFPAY | LOC: HWRAD 09:46 | PROVIDERS: ATTENDING PHYSICIAN Nurse Practitioner Adult Health | DX: Z13.820 Encounter for screening for osteoporosis (principal); Z78.0 Asymptomatic menopausal state | CPT/HCPCS: 77080 ==